=== PATIENT | male | born 1955 | race Caucasian/White ===

== ENCOUNTER → 2017-09-11 09:03 | Outpatient (REF) | payer MEDICARE, SELFPAY ==
[2017-09-11 13:33] LABS: Basophils # 0.1 K/mm3 (0-0.2); Basophils % 0.8 % (0.1-2.0); Eosinophils # 0.2 K/mm3 (0.0-0.4); Eosinophils % 3.2 % (0.1-12.0); Hematocrit 44.4 % (42.0-52.0); Hemoglobin 13.5 g/dL (14.1-18.0); Lymphocytes # 2.1 K/mm3 (0.7-4.5); Lymphocytes % 30.3 K/mm3 (10-50); Mean Corpuscular HGB Conc 30.5 g/dL (31.8-35.4); Mean Corpuscular Hemoglobin 28.4 pg (27.0-31.2); Mean Corpuscular Volume 93.2 fl (80-94); Mean Platelet Volume 7.7 fl (7.4-10.4); Monocytes # 0.4 K/mm3 (0.1-1.0); Monocytes % 6.1 % (1.7-9.3); Neutrophils # 4.1 K/mm3 (1.8-7.8); Neutrophils % 59.6 % (37.0-80.0); Platelet Count 242 K/mm3 (142-424); Red Blood Count 4.76 M/mm3 (4.60-6.20); Red Cell Distribution Width 13.7 % (11.5-17.5); White Blood Count 6.8 K/mm3 (4.8-10.8)
[2017-09-11 14:13] LABS: Alanine Aminotransferase 29 U/L (12-78); Albumin Level 3.7 gm/dL (3.4-5.0); Albumin/Globulin Ratio 1.1 (1.1-1.8); Alkaline Phosphatase 98 U/L (46-116); Anion Gap 11.1 mEq/L (5-15); Aspartate Amino Transferase 22 U/L (15-37); Bilirubin,Total 0.6 mg/dL (0.2-1.0); Blood Urea Nitrogen 10 mg/dL (7-18); Calcium 9.1 mg/dL (8.5-10.1); Carbon Dioxide 29 mmol/L (21.0-32.0); Chloride 107 mmol/L (98-107); Creatinine,Serum 0.89 mg/dL (0.70-1.30); Estimated Glomerular Filt Rate 87 ml/min (>60); Free T4 (Free Thyroxine) 1.09 ng/dl (0.76-1.46); GFR (African American) 105 ML/MIN (>60); Globulin 3.4 gm/dl (1.3-3.2); Glucose 95 mg/dL (74-106); Potassium 4.1 mmoL/L (3.5-5.1); Sodium 143 mmol/L (136-145); Total Protein,Serum 7.1 gm/dL (6.4-8.2)
[2017-09-13 06:27] LABS: PSA, Free 0.59 ng/mL; Prostate Specific Ag 8.5 ng/mL (0.0-4.0)
== END ==
LOC: LAB 09:03
PROVIDERS: Visit Provider Nurse Practitioner Family
DX: H54.40 Blindness, one eye, unspecified eye (principal); R53.83 Other fatigue; R97.20 Elevated prostate specific antigen [PSA]
CPT/HCPCS: 80053; 82652; 84153; 84154; 84439; 84443; 85025

== ENCOUNTER → 2019-09-12 14:09 | Outpatient (CLI) | payer MEDICARE, BC, SELFPAY ==
[2019-09-12 15:31] LABS: Basophils # 0.1 K/mm3 (0-0.2); Eosinophils # 0.2 K/mm3 (0.0-0.4); Hematocrit 45.5 % (42.0-52.0); Hemoglobin 14.7 g/dL (14.1-18.0); Lymphocytes % 28.5 % (10-50); Mean Corpuscular HGB Conc 32.3 g/dL (31.8-35.4); Mean Corpuscular Hemoglobin 29.7 pg (27.0-31.2); Mean Corpuscular Volume 91.8 fl (80-94); Mean Platelet Volume 8.6 fl (7.4-10.4); Monocytes # 0.4 K/mm3 (0.1-1.0); Monocytes % 5.7 % (1.7-9.3); Neutrophils # 4.3 K/mm3 (1.8-7.8); Neutrophils % 61.9 % (37.0-80.0); Platelet Count 240 K/mm3 (142-424); Red Blood Count 4.96 M/mm3 (4.60-6.20); Red Cell Distribution Width 13.5 % (11.5-17.5)
[2019-09-12 15:39] LABS: Chloride 106 mmol/L (98-107); Potassium 3.9 mmoL/L (3.5-5.1); Sodium 141 mmol/L (136-145)
[2019-09-12 15:42] LABS: Alanine Aminotransferase 23 U/L (12-78); Albumin Level 4.4 g/dl (3.5-5.0); Albumin/Globulin Ratio 1.5 (1.1-1.8); Alkaline Phosphatase 99 U/L (38-126); Anion Gap 11.9 mEq/L (5-15); Aspartate Amino Transferase 37 U/L (17-59); Blood Urea Nitrogen 11 mg/dl (9-20); Carbon Dioxide 27 mmol/L (22.0-30.0); Cholesterol 203 mg/dl (140-200); Estimated Glomerular Filt Rate 114 ml/min (>60); GFR (African American) 137 ML/MIN (>60); Total Protein,Serum 7.4 g/dl (6.3-8.2); Triglycerides 90 mg/dl (30-150); VLDL Cholesterol 18 mg/dL (0-40)
[2019-09-12 15:43] LABS: Calcium 9.3 mg/dl (8.4-10.2); Chol/HDL Ratio 2.5 (1-3.5); Glucose 108 mg/dl (74-100); HDL Cholesterol 81 mg/dl (40-60)
[2019-09-12 15:54] LABS: Direct LDL Cholesterol 104.65 mg/dL (100-129)
[2019-09-12 15:59] LABS: Free T4 (Free Thyroxine) 1.38 ng/dl (0.78-2.19)
[2019-09-12 16:14] LABS: Thyroid Stimulating Hormone 1.37 uIU/mL (0.465-4.68)
[2019-09-14 07:54] LABS: PSA, Free 0.77 ng/mL; Prostate Specific Ag 12.6 ng/mL (0.0-4.0)
[2019-09-15 08:25] LABS: Vitamin D 25 Hydroxy 25.2 ng/mL (30.0-100.0)
== END ==
PROVIDERS: Visit Provider Emergency Medicine
DX: R53.83 Other fatigue (principal); I10 Essential (primary) hypertension; E78.5 Hyperlipidemia, unspecified; M25.511 Pain in right shoulder; R97.20 Elevated prostate specific antigen [PSA]; E55.9 Vitamin D deficiency, unspecified
CPT/HCPCS: 80053; 80061; 82652; 84153; 84154; 84439; 84443; 85025

== ENCOUNTER → 2019-10-07 08:53 | Outpatient (CLI) | payer MEDICARE, OTHER, SELFPAY ==
--- NOTE | 2019-10-07 09:16 | XR_ITS ---
PROCEDURE: XR FOOT WT BEARING RT 3V CLINICAL INDICATION: pain COMPARISON: XR FOOT WT BEARING LT 3V from 10/07/2019 FINDINGS: No fracture or dislocation. No lytic or blastic change. There is normal mineralization. There are mild hypertrophic changes at the distal aspect of the 1st metatarsal. There is pes planus with degenerative changes of the posterior subtalar joint Other findings:None. IMPRESSION: Degenerative changes with pes planus Dictated by: Oneil Landin MD 10/07/2019 16:35 Electronically signed by Oneil Landin MD in [place] 10/07/2019 16:35
--- NOTE | 2019-10-07 09:16 | XR_ITS ---
PROCEDURE: XR CERVICAL SPINE 5V CLINICAL INDICATION: neck pain COMPARISON: No exams were available for comparison FINDINGS: No fracture or dislocation. No lytic or blastic change. There is normal mineralization. Straightening of the cervical lordosis. 3 mm anterolisthesis of C2 on C3 and C3 on C4. Severe degenerative disc disease C4-C5 C5-C6 C6-C7. Prominent facet arthritic changes are present from C3-C7 with foraminal narrowing on the left at C3-C4 C4-C5 C5-C6 and C6-C7 and on the right at C4-C5 C5-C6. Carotid artery calcifications are present. There is minimal mid cervical curvature convex right. There is an old fracture versus nuchal ligament calcification at C7. No lytic or blastic change Other findings:None. IMPRESSION: Multilevel degenerative changes with cervical spondylosis as detailed above Dictated by: Oneil Landin MD 10/07/2019 16:03 Electronically signed by Oneil Landin MD in [place] 10/07/2019 16:03
--- NOTE | 2019-10-07 09:16 | XR_ITS ---
PROCEDURE: XR SHOULDER RT MIN 2V CLINICAL INDICATION: right shoulder pain COMPARISON: No exams were available for comparison FINDINGS: No fracture or dislocation. No lytic or blastic change. There is normal mineralization. There are mild osteoarthritic changes the glenohumeral joint and acromioclavicular joint. No fracture or dislocation. Other findings:None. IMPRESSION: Mild osteoarthritis Dictated by: Oneil Landin MD 10/07/2019 16:01 Electronically signed by Oneil Lnadin MD in [place] 10/07/2019 16:01
--- NOTE | 2019-10-07 09:16 | XR_ITS ---
PROCEDURE: XR FOOT WT BEARING LT 3V CLINICAL INDICATION: pain COMPARISON: No exams were available for comparison FINDINGS: No fracture or dislocation. No lytic or blastic change. There is normal mineralization. The joint spaces are well-preserved. No significant degenerative/arthritic changes. No erosive changes evident. Other findings:None. IMPRESSION: No acute findings. Dictated by: Oneil Landin MD 10/07/2019 16:34 Electronically signed by Oneil Landin MD in [place] 10/07/2019 16:34
== END ==
PROVIDERS: PCP Emergency Medicine; Visit Provider Podiatrist
DX: M54.2 Cervicalgia (principal); M25.511 Pain in right shoulder; M79.672 Pain in left foot; M79.671 Pain in right foot
CPT/HCPCS: 72050; 73030; 73630

== ENCOUNTER → 2019-10-10 08:17 | Outpatient (CLI) | payer MEDICARE, SELFPAY ==
[2019-10-10 10:29] LABS: Coronavirus 19 IgG Antibody Negative (Negative); Coronavirus 19 IgM Antibody Negative (Negative)
== END ==
PROVIDERS: Visit Provider Urology
DX: Z01.818 Encounter for other preprocedural examination (principal)
CPT/HCPCS: 36415; 86328

== ENCOUNTER 2019-10-13 09:17 | Day surgery (SDC) | payer MEDICARE, SELFPAY ==
--- NOTE | 2019-10-09 09:21 | SUR.PREOP ---
10/09/2019 @ 7620--PHONE CALL MADE TO PATIENT. PATIENT UNDERSTANDS THAT LAB WORK AND COVID TESTING NEEDS TO BE COMPLETED @ 0800 ON 10/10/2019. PATIENT UNDERSTANDS IF LAB WORK AND COVID-19 TESTS ARE NOT COMPLETED BY 12PM ON THAT DATE, THE SURGERY SCHEDULED WILL BE CANCELLED AND RESCHEDULED FOR ANOTHER TIME.
[2019-10-10 10:27] VITALS: BMI 22.9
[2019-10-13 09:33] VITALS: BP 152/98; PULSE 103; RESP 18; TEMP 36.9; O2SAT 97
[2019-10-13 10:23] VITALS: BP 123/73; PULSE 98; RESP 18; TEMP 36.5; O2SAT 96
--- NOTE | 2019-10-13 10:26 | P.PN_ITS ---
[facility] Anesthesia Checklist - Patient Identification Patient Identification: Arm Band - Structural Data Admitted From: Home Planned Operative Procedure/s: prostate bx Consent for Planned Operative Procedure(s) Verified: Yes Verified Documents: Surgical Consent, History and Physical - NPO Status Verified Time NPO: 00:00 - Additional verifications Anesthesia Reactions: No Hx Blood Transfusions: No Blood Transfusion Reaction: No - Airway Assessment C-Spine Mobility Assessed: Yes (mp2) TMJ Mobility Assessed: Yes Dentition: Good Dentition - Neurological Assessment Level of Consciousness: Awake, Alert - Anesthesia Plan Anesthesia Risk discussed: Yes Anesthesia Plan: Verified ASA Class: II Anesthesia Type: MAC [facility] History I have reviewed the patient's past medical history: Yes Medical History: Denies:: Cancer, Diabetes Mellitus Type 1, Diabetes Mellitus Type 2, Internal Pacemaker, MRSA, Seizures *Have you ever received a pneumonia vaccine?: No *Have you received a flu vaccine this season?: No Other Medical History: Reports: Other. Denies: Blood Transfusion Reaction Anesthesia experience/problems:: nac Laterality Cases: Right: Arthroscopy Knee, Other Other Surgeries: Yes: Colonoscopy, Other. No: Pacemaker Amputation: No Fractures: Yes (Right foot) - *Social History Last grade of school completed: Advanced degree Smoking Status: Former smoker Tobacco Type: cigarettes # Packs/Day (cigarettes): 1 Alcohol Intake: never Substance Use Type: denies use *Occupational Status:: employed Housing: house Household Members: spouse *Travel in the last 8 weeks: None Family Hx:: No significant family history
[2019-10-13 10:33] VITALS: BP 99/68; PULSE 105; RESP 18; O2SAT 97
[2019-10-13 10:43] VITALS: BP 107/76; PULSE 93; RESP 18; O2SAT 96
[2019-10-13 10:52] VITALS: BP 121/81; PULSE 90; RESP 18; O2SAT 95
--- NOTE | 2019-10-13 11:07 | HMH.OPNOTE ---
Date of procedure: 10/13/19 Pre-op Diagnosis:: Elevated PSA Post-op Diagnosis:: Same Procedure performed:: Transrectal ultrasound with prostate biopsies x12 Surgeon:: Bert Jay MD FIELD TRAINING AGENT:: Kartik Palacios Anesthesia: MAC Estimated blood loss (mL): 0 Clinical Note:: 63-year-old white male with rising PSA and some firmness to his prostate exam. Operative findings:: Prostate measured at 23.1 cm?. There was a hypoechoic nodule at the right prostate base and some scattered calcifications. Operative note:: Patient taken to the operating room after informed consent was obtained. Was placed on the operating table in the left lateral decubitus position. Monitored anesthesia care was then administered. His legs were flexed he was padded appropriately. He had been on p.o. antibiotics and IV Ancef was given in addition. He had formed his enema earlier that morning. Transrectal ultrasound was placed into the rectum after analgesia. Prostate was visualized easily and was measured at 23.1 cm?. There was a hypoechoic spherical nodule at the left prostate base. Few scattered calcifications were noted. Local anesthetic was placed in these neurovascular bundle and 12 biopsies then taken in a systematic fashion. The probe removed and the patient tolerated the procedure well. There are no complications. Transported to recovery in stable condition. Condition: stable Disposition: same day Specimens:: Prostate biopsies x12 Complications:: None
== END 2019-10-13 10:56 | disposition home or self-care (01) ==
LOC: OR 09:20
PROVIDERS: PCP Emergency Medicine; Visit Provider Urology
DX: C61 Malignant neoplasm of prostate (principal); Z87.39 Personal history of other diseases of the musculoskeletal system and connective tissue; Z98.52 Vasectomy status; Z83.438 Family history of other disorder of lipoprotein metabolism and other lipidemia; Z83.49 Family history of other endocrine, nutritional and metabolic diseases; Z82.49 Family history of ischemic heart disease and other diseases of the circulatory system; Z87.891 Personal history of nicotine dependence
CPT/HCPCS: 55700; 76942; 88305; 96374

== ENCOUNTER → 2019-11-06 08:45 | Outpatient (CLI) | payer MEDICARE, SELFPAY ==
[2019-11-06 09:08] LABS: Blood Urea Nitrogen 11 mg/dl (9-20); Estimated Glomerular Filt Rate 114 ml/min (>60); GFR (African American) 137 ML/MIN (>60)
--- NOTE | 2019-11-06 09:12 | NM_ITS ---
PROCEDURE: NM BONE SCAN WHOLE BODY CLINICAL INDICATION: prostate cancer, diagnosed 2 weeks ago. COMPARISON: No exams were available for comparison TECHNIQUE: Dose Radiopharmaceutical: 26.3 millicurie technetium 99 M MDP intravenously. FINDINGS: Normal physiologic distribution of radiotracer is seen. No evidence of osteoblastic metastatic disease is demonstrated. Degenerative arthritic uptake is seen in the major joints of the appendicular skeleton. IMPRESSION: No evidence of osseous metastatic disease. Dictated by: Rachael Gallegos 11/06/2019 16:25 Electronically signed by Rachael Gallegos in [place] 11/06/2019 16:25
--- NOTE | 2019-11-06 12:53 | HMH.ITSHM ---
Current Home Medications as stated by this patient Fazal Craig or brand representative. [] fluticasone meloxican gabapentin
== END ==
PROVIDERS: Visit Provider Urology
DX: C61 Malignant neoplasm of prostate (principal)
CPT/HCPCS: 36415; 78306; 82565; 84520; A9503

== ENCOUNTER → 2019-11-07 09:00 | Outpatient (CLI) | payer MEDICARE, SELFPAY ==
--- NOTE | 2019-11-07 09:01 | CT_ITS ---
PROCEDURE: CT ABDOMEN PELVIS WO/W CON CLINICAL INDICATION: prostate cancer COMPARISON: No exams were available for comparison TECHNIQUE: IV Contrast: 75ML OPTIRAY 350 Oral Contrast 450ml Redicat Axial images obtained with sagittal and coronal reformats. All CT scans at the facility use one or more dose reduction, viz: automated exposure control, ma/kV adjustment per patient size (including targeted exams where dose is matched to indication, i.e. head), or iterative reconstruction technique. FINDINGS: LOWER THORAX: No acute finding. Mild dependent atelectasis is seen in the visualized extends of the lung bases. ABDOMEN & PELVIS: Hepatobiliary: The liver has a normal size with a smooth surface. The hepatic and portal veins appear patent. No discrete hepatic lesion is identified. The gallbladder and biliary ductal system is unremarkable. Pancreas: There is no demonstrated pancreatic mass or cyst. Spleen: Multiple small calcified granulomata of the spleen. The spleen is not enlarged. Adrenals: The adrenal glands are normal. Kidneys, ureters and bladder: Both kidneys have a normal size and morphology. There is a 2.6 centimeter partially exophytic simple cyst seen laterally of the mid right kidney. There is no hydronephrosis. Both ureters have normal course and caliber. There is up to 5.5 millimeters mild diffuse wall thickening of the urinary bladder. Gastrointestinal: The stomach and small bowel are normal with no obstruction or inflammation. Moderate amount of retained stool is seen in the ascending colon. The large bowel is within normal limits. Reproductive organs: Probably there is borderline prostatomegaly. Normal bilateral seminal vesicles. Lymphatic system: No significant adenopathy demonstrated within the abdomen/pelvis. Small reactive lymph nodes are seen in the root of the small bowel mesentery. Vasculature: Moderate atherosclerotic calcification of the infrarenal abdominal aorta and significant calcification of the iliac arteries. Normal caliber abdominal aorta. Peritoneum: No free fluid, free air or inflammation seen. Abdominal wall and musculoskeletal: Soft tissues are unremarkable. Degenerative endplate spondylitic changes of the thoracolumbar spine are seen with anterior is small osteophytes. At L5-S1 degenerative disc/endplate spondylitic changes are seen. No lytic/blastic destructive bony abnormality is identified. IMPRESSION: 1.No mass, lymphadenopathy or acute abnormality demonstrated in the abdomen/pelvis. 2. A 2.6 centimeter right renal simple cyst. 3. Possible borderline prostatomegaly. Mild diffuse urinary bladder wall thickening. 4. No osseous lytic/blastic abnormality is seen. Possible osteopenia. Dictated by: Rachael Gallegos 11/07/2019 11:14 Electronically signed by Rachael Gallegos in [place] 11/07/2019 11:14
--- NOTE | 2019-11-07 09:45 | HMH.ITSHM ---
Current Home Medications as stated by this patient Fazal Craig or fraud representative. []meloxicam GABAPENTIN NASAL SPRAY FEXOFENDADINE VITAMIN D2
== END ==
PROVIDERS: PCP Emergency Medicine; Visit Provider Urology
DX: C61 Malignant neoplasm of prostate (principal)
CPT/HCPCS: 74178; Q9967

== ENCOUNTER 2020-01-11 13:53 | Emergency (ER) | payer MEDICARE, SELFPAY ==
[2020-01-11 14:30] VITALS: BP 160/93; PULSE 87; RESP 19; TEMP 36.6; O2SAT 99; BMI 22.9
--- NOTE | 2020-01-11 14:55 | HMH.EDUTC ---
[facility] [place] Clinical Impression: Hematoma Disposition: Home, Self-Care Condition on Discharge: Good Instructions: DI for Hematoma (Bruise), How To Perform RICE (Rest, Ice, Compress, Elevate) Additional Instructions: *RICE, Rest the extremity, Ice 15-20 minutes 3-4 times daily, Compress- wear the kiran wrap as discussed as much as possible to help reduce swelling and pain, Elevate the extremity when at rest *Kiran wrap is for support and help control swelling, use it except in the shower. Be sure that is not to tight but not to loose either *Elevate when resting *Call Dr Valenzuela office tomorrow for appointment Return if needed Straight to ER If any life threatening symptoms such as chest pain or trouble breathing etc Referrals: Aftab Farfan MD [Primary Care Provider] - As needed Chance Maria MD [Staff Physician] - As needed (call office tomorrow for appointment) Time of Disposition: 16:23 Medical Decision Making - Issac Inquiry Pt receiving controlled substance: No Issac was queried for this patient: No Vital Signs: 01/11/20 14:30 01/11/20 16:26 Temperature 97.8 F 978 F H Temperature Source Oral Oral Pulse Rate 87 Pulse Rate [Radial] 87 Respiratory Rate 19 19 Blood Pressure 160/93 H Blood Pressure [Right Arm] 160/93 H Blood Pressure Mean [Right Arm] 115 Blood Pressure Source Automatic Cuff Blood Pressure Source [Right Arm] Automatic Cuff Blood Pressure Position Sitting Blood Pressure Position [Right Arm] Sitting 02 Sat by Pulse Oximetry 99 Oxygen Delivery Method Room Air Room Air Medical Decision Narrative: Discussed with patient and recommended to call Orthopedic office in the morning for appointment for further evaluation and treatment concern for muscle tear,No further bruising noted after arrival no abdnormal swelling noted. Patient able to move arm and raise arm above head [facility] [place] HPI - General Stated complaint: bruise on right arm, no accident Time Seen by Provider: 01/11/20 14:55 Mode of Arrival: Ambulatory Source of Information: Patient Limitations: No Limitations Description of Symptoms (Recalled from Triage Doc. by RN): purple area to the right arm. HEENT Symptoms (Recalled from RN notes): No Resp Symptoms (Recalled from RN notes): No Skin Symptoms (Recalled from RN notes): Yes MS Symptoms (Recalled from RN notes): No Functional Status (Recalled from RN notes): wnl - History of Present Illness Provider Complaint: Patient states that he was outside and shoveled up some dirt and noticed he had large purple area on his right upper arm States that he doesnt recall doing anything to hurt it and not sore to the touch States that it hasnt got any worse but he was worried so he come in to get it checked States that he had been seeing Dr Maria for muscle problem in that shoulder and denies taking any blood thinners - Related Data Home Medications Medication Instructions Recorded Confirmed fluticasone propionate 50 1 spray INTRANASAL DAILY 06/27/18 11/21/19 mcg/actuation nasal spray,suspension fexofenadine 60 mg tablet 60 mg PO BID 09/12/19 11/21/19 Ergocalciferol (Vitamin D2) 1,250 mcg PO QWEEK 10/13/19 11/21/19 [Drisdol] Previous Rx's Medication Instructions Recorded meloxicam 7.5 mg tablet 7.5 mg PO DAILY 30 Days #30 tab 11/04/19 acetaminophen 300 mg-codeine 30 mg 1 tab PO TID PRN #90 tab 12/17/19 tablet Allergies Allergy/AdvReac Type Severity Reaction Status Date / Time pollen extracts Allergy Verified 11/21/19 11:34 - Worker's Comp Is this a Worker's Comp case?: No [facility] History - Hepatitis A Screen Drug use history?: No High risk sexual behaviors?: No History of sexually transmitted infection?: No Currently employed?: No Childcare worker?: No Do you have indoor plumbing?: Yes Do you have electricity?: Yes Attestation statement:: This patient has been screened for Hepatitis A risk factors. I have reviewed the patient's past m
[2020-01-11 16:26] VITALS: BP 160/93; PULSE 87; RESP 19; TEMP 525.5; TEMP 978; O2SAT 99
== END 2020-01-11 16:27 | disposition home or self-care (01) ==
PROVIDERS: Emergency Provider Nurse Practitioner; PCP Emergency Medicine
DX: S40.021A Contusion of right upper arm, initial encounter (principal); X50.3XXA Overexertion from repetitive movements, initial encounter; Y92.019 Unspecified place in single-family (private) house as the place of occurrence of the external cause; I10 Essential (primary) hypertension; Z87.891 Personal history of nicotine dependence
CPT/HCPCS: G0463; 99201

== ENCOUNTER → 2020-01-28 16:03 | Outpatient (CLI) | payer MEDICARE, SELFPAY ==
--- NOTE | 2020-01-28 16:03 | MR_ITS ---
PROCEDURE: MR SHOULDER RT WO CON CLINICAL INDICATION: right shoulder evaluation for rotator cuff tear CHRONIC RT SHOULDER PAIN THIS TO EVALUATE FOR ROTATOR CUFF TEAR. COMPARISON: 10/07/2019 radiograph TECHNIQUE: Routine multiplanar multi echo sequences are performed without gadolinium enhancement. FINDINGS: There is complete tear of the supraspinatus tendon with retraction of the musculotendinous fibers and some atrophy of the musculotendinous fibers. There is subacromial stenosis with subacromial fluid with hypertrophic change of the acromioclavicular joint. There is a slightly high-riding humeral head with mild osteoarthritic changes of the glenohumeral joint. The subscapularis, teres minor, and infraspinatus tendons are intact. No obvious labral tear. Bicipital tendon is in place. There is a moderate sized shoulder joint effusion with fluid posterior to the shoulder joint and a small amount of subcoracoid fluid. 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 Dictated by: Oneil Landin MD 01/29/2020 10:40 Oneil Landin MD in [place] 01/29/2020 10:40
== END ==
PROVIDERS: PCP Emergency Medicine; Visit Provider Orthopaedic Surgery
DX: G89.29 Other chronic pain (principal); M25.511 Pain in right shoulder
CPT/HCPCS: 73221

== ENCOUNTER 2020-03-30 10:00 | Outpatient (RCR) | payer MEDICARE, SELFPAY ==
--- NOTE | 2020-02-18 13:20 | HMH.PTOPEV ---
PT Outpatient Evaluation Rehab PT Outpatient Evaluation Start: 02/18/20 13:11 Freq: Status: Active Protocol: Document 02/18/20 13:11 JHOAN (Rec: 02/18/20 13:20 JHOAN [id number]) Electronically Signed By Daniel Alexander, PT 02/18/20 13:11 Outpatient Therapy Subjective History Subjective History Pt reports insidious onset RSH pain beginning in August 2019, with difficulty lifting/ gripping w/RUE to follow. Pt reports recent MRI of R SH has revealed supraspinatus tear, and AC jt OA. Pt reports recent 'injection' into RSH has 'helped', but still has significant pain, weakness, and limited ROM. Chief Complaint Pain,Stiff,Weakness Symptom Type Ache,Sharp,Dull Symptoms Relieved By Rest/Positioning,Ice Symptoms Aggravated By Physical Activity,Lifting Prior Functional Limitations Reaching,Lifting,Housework Current Functional Limitations Reaching,Lifting,Housework Symptom Description Constant but Variable Level of pain today (0-10) 7 Pain scale - at its best (0-10) 5 Pain scale - at its worst (0-10) 8 Shoulder/Elbow Eval Shoulder Objective Measurements Palpation Tenderness tenderness shoulder exam standard right tenderness over the bicipital tendon right shoulder exam standard Shoulder Palpation Findings Tenderness,Muscle Guarding Shoulder Palpation Overall Comment 2-3/4 LHB, SS INSERTION, POST RTC MM BELLY Posture Scapula Posture Sitting Position (L) Protracted,(R) Protracted Scapular Posture Standing Position (L) Protracted,(R) Protracted Flexibilty Deficits Pectoralis Minor Muscle Length (R) Mild Tightness,(L) Mild Tightness Pectoralis Major Muscle Length (R) Mild Tightness,(L) Mild Tightness Shoulder ROM Right Shoulder Abduction Active Range of 0-115 Motion (degrees) Shoulder Abduction Passive Range of 0-135 Motion (degrees) Shoulder Flexion Active Range of Motion 0-125 (degrees) Query Text: Shoulder Flexion Passive Range of Motion 0-140 (degrees) Shoulder External Rotation Passive Range 0-90 of Motion (degrees) Shoulder Internal Rotation Passive Range 0-25 of Motion (degrees) Shoulder MMT Middle Trapezius Strength Grade 3+ Fair+ Rhomboids Strength Grade 3+ Fair+ Serratus Anterior Strength Grade 4- Good- Shoulder Abduction Strength Grade 4- Good- Shoulder Extension Strength Grade 4- Good-
--- NOTE | 2020-03-19 10:39 | HMH.RHREAS ---
Rehab Reassessment Rehab OP Re-assessment Start: 03/19/20 10:24 Freq: Status: Active Protocol: Document 03/19/20 10:24 JHOAN (Rec: 03/19/20 10:39 JHOAN [id number]) Electronically Signed By Daniel Alexander, PT 03/19/20 10:24 Rehab Re-assessment Subjective Subjective PT REPORTS 4/10 R SH AT REST AND 7/10 R SH PAIN WITH ACTIVITY ON VAS, AND FEELS 3-5 % BETTER OVERALL SINCE I EVAL Objective Objective Notes AROM: R SH FLX 0-150, ABD 0- 145 MMT: R SH FLX 4/5, ABD 4/5, IR 5/5, ER 4+/5, BICEP 5/5, TRICEP 5/5 TTP: R SH ANT RTC 05/13, POST RTC 04/12 Assessment Progress Assessment Progressing as Expected Assessment Notes PT W/IMPROVED STRENGTH, ROM, AND TTP Patient goals met STG'S 07/14 LTG'S 04/17 Goals Not Met STG'S 06/13, LTG'S 11/15 Plan Plan PT TO CONT. W/SKILLED P.T. TO MAKE FURTHER IMPROVEMENTS IN R SH AROM, STRENGTH, TTP TO ALLOW FOR OPTIMAL FUNCTION Frequency of Therapy 1-2X/WK Duration of therapy 3-4WKS Time and Billing Re-Eval Time 15 Re-Eval Billing Units 0 PHYSICIAN CERTIFICATION: I certify the specified therapy services for Fazal Craig are required, authorized, and reviewed every 30 days.
== END 2020-03-30 10:05 | disposition home or self-care (01) ==
LOC: PT 10:00
PROVIDERS: PCP Emergency Medicine; Visit Provider Orthopaedic Surgery
DX: M75.121 Complete rotator cuff tear or rupture of right shoulder, not specified as traumatic (principal)
CPT/HCPCS: 97014; 97033; 97110; 97163; 97164; G0283

== ENCOUNTER 2020-04-30 09:00 | Outpatient (RCR) | payer MEDICARE, SELFPAY ==
--- NOTE | 2020-04-07 16:18 | HMH.PTOPEV ---
PT Outpatient Evaluation Rehab PT Outpatient Evaluation Start: 04/07/20 15:38 Freq: Status: Active Protocol: Document 04/07/20 16:07 REGIS (Rec: 04/07/20 16:18 PHORNE [id number]) Electronically Signed By Alex Chang, PT 04/07/20 16:07 Outpatient Therapy Subjective History Subjective History Pt is 64 yowm who presents with c/o pain in neck, worse on L side for many years. He reports he has had therapy in the past and he does get some relief from exercises he can remember. He reports pain is intermittent, but can be severe. He also reports intermittent STARKS. 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 He also has hx of currently torn R supraspinatus tendon which he states, they want to do a replacement on it. Chief Complaint Pain,Stiff Symptom Type Ache Symptoms Relieved By Rest/Positioning,Prescription Meds Symptoms Aggravated By Physical Activity Prior Functional Limitations None Current Functional Limitations Reaching,Lifting Symptom Description Intermittent Level of pain today (0-10) 5 Pain scale - at its worst (0-10) 7 Cervical Eval Palpation Cervical Muscles R Cervical Paraspinal,L Cervical Paraspinal,L Upper Trapezius Cervical/Thoracic Palpation Findings Tenderness Flexibility Deficits Upper Trapezius Muscle Length (R) Moderate Tightness,(L) Moderate Tightness Levaetor Scapulae Muscle Length (R) Moderate Tightness,(L) Moderate Tightness Scalene Group Muscle Length (L) Moderate Tightness Passive Joint Mobility Cervical PIVM Dec: R C2/3 L C2/3 R C3/4 L C3/4 R C4/5 L C4/5 R C5/6 L C5/6 R C6/7 L C6/7 R C7/T1 L C7/T1
== END 2020-04-30 09:05 | disposition home or self-care (01) ==
LOC: PT 09:00
PROVIDERS: Visit Provider Emergency Medicine
DX: M54.2 Cervicalgia (principal)
CPT/HCPCS: 97012; 97014; 97110; 97163; G0283

== ENCOUNTER → 2020-05-17 14:16 | Outpatient (CLI) | payer MEDICARE, SELFPAY ==
[2020-05-17 15:58] LABS: Amphetamine/Metha Screen,Urine Negative ng/ml (<1000)
[2020-05-17 15:59] LABS: Barbiturates Screen,Urine Negative ng/ml (<200); Benzodiazepines Screen,Urine Negative ng/ml (<200)
[2020-05-17 16:00] LABS: Cannabinoid Screen,Urine Negative ng/ml (<50)
[2020-05-17 16:01] LABS: Cocaine Screen,Urine Negative ng/ml (<300)
[2020-05-17 16:02] LABS: Methadone Screen,Urine Negative ng/ml (<300); Opiate Screen,Urine Negative ng/ml (<300)
[2020-05-17 16:04] LABS: Phencyclidine Screen,Urine Negative ng/ml (<25)
== END ==
PROVIDERS: Visit Provider Emergency Medicine
DX: Z79.899 Other long term (current) drug therapy (principal)
CPT/HCPCS: 80305

== ENCOUNTER → 2020-07-14 14:19 | Outpatient (CLI) | payer MEDICARE, SELFPAY ==
[2020-07-14 15:21] LABS: Amphetamine/Metha Screen,Urine Negative ng/ml (<1000)
[2020-07-14 15:22] LABS: Barbiturates Screen,Urine Negative ng/ml (<200)
[2020-07-14 15:23] LABS: Benzodiazepines Screen,Urine Negative ng/ml (<200)
[2020-07-14 15:24] LABS: Cannabinoid Screen,Urine Negative ng/ml (<50)
[2020-07-14 15:25] LABS: Cocaine Screen,Urine Negative ng/ml (<300); Methadone Screen,Urine Negative ng/ml (<300)
[2020-07-14 15:26] LABS: Opiate Screen,Urine Positive ng/ml (<300)
[2020-07-14 15:27] LABS: Phencyclidine Screen,Urine Negative ng/ml (<25)
== END ==
PROVIDERS: Visit Provider Emergency Medicine
DX: Z79.899 Other long term (current) drug therapy (principal)
CPT/HCPCS: 80305

== ENCOUNTER → 2020-10-27 13:05 | Outpatient (CLI) | payer MEDICARE, SELFPAY ==
[2020-10-28 00:22] LABS: Amphetamine/Metha Screen,Urine Negative ng/ml (<1000); Barbiturates Screen,Urine Negative ng/ml (<200); Benzodiazepines Screen,Urine Negative ng/ml (<200); Cannabinoid Screen,Urine Negative ng/ml (<50); Cocaine Screen,Urine Negative ng/ml (<300); Methadone Screen,Urine Negative ng/ml (<300); Opiate Screen,Urine Positive ng/ml (<300); Phencyclidine Screen,Urine Negative ng/ml (<25)
== END ==
PROVIDERS: Visit Provider Emergency Medicine
DX: Z79.899 Other long term (current) drug therapy (principal)
CPT/HCPCS: 80305

== ENCOUNTER → 2020-12-22 14:22 | Outpatient (CLI) | payer MEDICARE, SELFPAY ==
[2020-12-22 15:44] LABS: Phencyclidine Screen,Urine Negative ng/ml (<25)
[2020-12-22 15:54] LABS: Amphetamine/Metha Screen,Urine Negative ng/ml (<1000)
[2020-12-22 15:55] LABS: Cannabinoid Screen,Urine Negative ng/ml (<50)
[2020-12-22 15:56] LABS: Barbiturates Screen,Urine Negative ng/ml (<200); Benzodiazepines Screen,Urine Negative ng/ml (<200)
[2020-12-22 15:57] LABS: Cocaine Screen,Urine Negative ng/ml (<300); Opiate Screen,Urine Negative ng/ml (<300)
[2020-12-22 15:58] LABS: Methadone Screen,Urine Negative ng/ml (<300)
== END ==
PROVIDERS: Visit Provider Emergency Medicine
DX: Z79.899 Other long term (current) drug therapy (principal)
CPT/HCPCS: 80305

== ENCOUNTER → 2021-01-01 08:15 | Outpatient (CLI) | payer MEDICARE, SELFPAY ==
[2021-01-01 09:04] LABS: Basophils # 0.1 K/mm3 (0-0.2); Basophils % 0.8 % (0.1-2.0); Eosinophils # 0.3 K/mm3 (0.0-0.4); Eosinophils % 3.8 % (0.1-12.0); Hematocrit 39.8 % (42.0-52.0); Hemoglobin 12.5 g/dL (14.1-18.0); Lymphocytes # 2.5 K/mm3 (0.7-4.5); Lymphocytes % 34.1 % (10-50); Mean Corpuscular HGB Conc 31.4 g/dL (31.8-35.4); Mean Corpuscular Hemoglobin 29.4 pg (27.0-31.2); Mean Corpuscular Volume 93.8 fl (80-94); Mean Platelet Volume 7.7 fl (7.4-10.4); Monocytes # 0.3 K/mm3 (0.1-1.0); Monocytes % 4.7 % (1.7-9.3); Neutrophils # 4.1 K/mm3 (1.8-7.8); Neutrophils % 56.6 % (37.0-80.0); Platelet Count 254 K/mm3 (142-424); Red Blood Count 4.25 M/mm3 (4.60-6.20); Red Cell Distribution Width 14.2 % (11.5-17.5); White Blood Count 7.3 K/mm3 (4.8-10.8)
[2021-01-01 09:23] LABS: Chloride 107 mmol/L (98-107); Potassium 3.9 mmoL/L (3.5-5.1); Sodium 143 mmol/L (136-145)
[2021-01-01 09:25] LABS: Alanine Aminotransferase 20 U/L (12-78); Blood Urea Nitrogen 14 mg/dl (9-20); Estimated Glomerular Filt Rate 97 ml/min (>60); GFR (African American) 117 ML/MIN (>60)
[2021-01-01 09:26] LABS: Albumin Level 3.8 g/dl (3.5-5.0); Albumin/Globulin Ratio 1.2 (1.1-1.8); Alkaline Phosphatase 84 U/L (38-126); Anion Gap 10.9 mEq/L (5-15); Aspartate Amino Transferase 30 U/L (17-59); Bilirubin,Total 0.5 mg/dl (0.2-1.3); Calcium 9.2 mg/dl (8.4-10.2); Carbon Dioxide 29 mmol/L (22.0-30.0); Chol/HDL Ratio 2.8 (1-3.5); Cholesterol 201 mg/dl (140-200); Globulin 3.3 g/dL (1.3-3.2); Glucose 93 mg/dl (74-100); HDL Cholesterol 72 mg/dl (40-60); Total Protein,Serum 7.1 g/dl (6.3-8.2); Triglycerides 85 mg/dl (30-150); VLDL Cholesterol 17 mg/dL (0-40)
[2021-01-01 09:37] LABS: Direct LDL Cholesterol 93.02 mg/dL (100-129)
[2021-01-01 09:41] LABS: 25-OH Vitamin D, Total 41.1 ng/mL (30-100); Free T4 (Free Thyroxine) 1.12 ng/dl (0.78-2.19)
[2021-01-01 09:56] LABS: Thyroid Stimulating Hormone 1.22 uIU/mL (0.465-4.68)
== END ==
PROVIDERS: Visit Provider Emergency Medicine
DX: M25.512 Pain in left shoulder (principal); R53.83 Other fatigue; E55.9 Vitamin D deficiency, unspecified; Z79.899 Other long term (current) drug therapy
CPT/HCPCS: 36415; 80053; 80061; 82306; 84439; 84443; 85025

== ENCOUNTER → 2021-01-31 19:42 | Outpatient (CLI) | payer MEDICARE, SELFPAY | PROVIDERS: Visit Provider Nurse Practitioner Family | DX: J02.9 Acute pharyngitis, unspecified (principal); Z20.822 Contact with and (suspected) exposure to COVID-19 | CPT/HCPCS: C9803; U0003; U0005 ==

== ENCOUNTER → 2021-02-16 17:48 | Outpatient (CLI) | payer MEDICARE, SELFPAY ==
[2021-02-16 19:38] LABS: Amphetamine/Metha Screen,Urine Negative ng/ml (<1000)
[2021-02-16 19:40] LABS: Barbiturates Screen,Urine Negative ng/ml (<200); Cannabinoid Screen,Urine Negative ng/ml (<50)
[2021-02-16 19:41] LABS: Benzodiazepines Screen,Urine Negative ng/ml (<200)
[2021-02-16 19:42] LABS: Cocaine Screen,Urine Negative ng/ml (<300); Opiate Screen,Urine Negative ng/ml (<300)
[2021-02-16 19:43] LABS: Methadone Screen,Urine Negative ng/ml (<300)
[2021-02-16 19:44] LABS: Phencyclidine Screen,Urine Negative ng/ml (<25)
== END ==
PROVIDERS: Visit Provider Emergency Medicine
DX: Z79.899 Other long term (current) drug therapy (principal)
CPT/HCPCS: 80305

== ENCOUNTER → 2021-06-14 16:00 | Outpatient (CLI) | payer MEDICARE, SELFPAY ==
[2021-06-14 14:45] LABS: Amphetamine/Metha Screen,Urine Negative ng/ml (<1000)
[2021-06-14 14:47] LABS: Barbiturates Screen,Urine Negative ng/ml (<200); Cannabinoid Screen,Urine Negative ng/ml (<50)
[2021-06-14 14:48] LABS: Benzodiazepines Screen,Urine Negative ng/ml (<200)
[2021-06-14 14:50] LABS: Cocaine Screen,Urine Negative ng/ml (<300)
[2021-06-14 14:51] LABS: Methadone Screen,Urine Negative ng/ml (<300)
[2021-06-14 14:52] LABS: Opiate Screen,Urine Positive ng/ml (<300); Phencyclidine Screen,Urine Negative ng/ml (<25)
== END ==
PROVIDERS: Visit Provider Emergency Medicine
DX: Z79.899 Other long term (current) drug therapy (principal)
CPT/HCPCS: 80305

== ENCOUNTER 2021-06-26 10:36 | Emergency (ER) | payer MEDICARE, SELFPAY ==
[2021-06-26 11:10] VITALS: BP 146/89; PULSE 123; RESP 20; TEMP 37.2; O2SAT 95; BMI 24.3
[2021-06-26 11:28] LABS: UTC Influenza A Antigen Negative (Negative); UTC Influenza B Antigen Negative (Negative)
--- NOTE | 2021-06-26 11:54 | HMH.EDUTC ---
[facility] [place] Clinical Impression: Upper respiratory infection Qualifiers: URI type: unspecified viral URI Qualified Code(s): J06.9 - Acute upper respiratory infection, unspecified Disposition: Home, Self-Care Condition on Discharge: Good Instructions: DI for Viral Upper Respiratory Infection -- Adult Additional Instructions: Viruses can take 7-14 days to run their course. Nasal saline and bulb syringe or nose [place] to remove nasal drainage to help with nasal congestion. Hard to eat, drink, sleep with nasal congestion so important to keep this cleaned out. Monitor temp. Tylenol or Motrin as needed for pain or fever Encourage fluids, water, Gatorade, Powerade, Pedialyte if /toddler/child Warm salt water gargles Warm fluids Sore throat lozenges Sleep elevated Humidifier/vaporizer Follow-up immediately for new or worsening symptoms or no noticeable improvement over the next 48-72 hours. Referrals: Aftab Farfan MD [Primary Care Provider] - Time of Disposition: 12:12 Medical Decision Making - Issac Inquiry Pt receiving controlled substance: No Vital Signs: 06/26/21 11:10 Temperature 98.9 F Temperature Source Oral Pulse Rate [Right Brachial] 123 H Respiratory Rate 20 Blood Pressure [Right Arm] 146/89 H Blood Pressure Mean [Right Arm] 108 Blood Pressure Source [Right Arm] Automatic Cuff Blood Pressure Position [Right Arm] Sitting 02 Sat by Pulse Oximetry 95 Oxygen Delivery Method Room Air - Lab Data Lab Results 06/26/21 11:14: Influenza Type A Ag Negative, Influenza Type B Ag Negative [facility] [place] - General Chief complaint: Urgent Treatment Center Stated complaint: fever, sore throat, body aches Time Seen by Provider: 06/26/21 11:54 Mode of Arrival: Ambulatory Source of Information: Patient Limitations: No Limitations Description of Symptoms (Recalled from Triage Doc. by RN): PATIENT C/O CONGESTION AND BODY ACHES X 2 DAYS HEENT Symptoms (Recalled from RN notes): Yes Resp Symptoms (Recalled from RN notes): No Skin Symptoms (Recalled from RN notes): No MS Symptoms (Recalled from RN notes): No Functional Status (Recalled from RN notes): WNL - History of Present Illness Provider Complaint: 65 yr old male presents for cough, sore throat and body aches for 2 days. having a test tomorrow and wants to make sure everything ok - Related Data Home Medications Medication Instructions Recorded Confirmed ferrous sulfate 325 mg (65 mg 325 mg PO DAILY 06/14/21 06/14/21 iron) tablet multivitamin 1 tab PO DAILY 06/14/21 06/14/21 Previous Rx's Medication Instructions Recorded lisinopril 10 mg tablet See Rx Instructions .ROUTE 10/18/20 .COMPLEX #90 tab hydrocodone 5 mg-acetaminophen 325 1 tab PO BID PRN #60 tab 06/14/21 mg tablet Allergies Allergy/AdvReac Type Severity Reaction Status Date / Time pollen extracts Allergy Verified 06/14/21 13:23 - Worker's Comp Is this a Worker's Comp case?: No [facility] History - Hepatitis A Screen Drug use history?: No High risk sexual behaviors?: No History of sexually transmitted infection?: No Currently employed?: No Childcare worker?: No Do you have indoor plumbing?: Yes Do you have electricity?: Yes Attestation statement:: This patient has been screened for Hepatitis A risk factors. I have reviewed the patient's past medical history: Yes Medical History: Reports:: Cancer, Hypertension Denies:: Diabetes Mellitus Type 1, Diabetes Mellitus Type 2, Internal Pacemaker, MRSA, Seizures Other Medical History: Reports: Arthritis, Thyroid Disease, Other. Denies: Blood Transfusion Reaction Comment: Abnormal PSA Laterality Cases: Right: Arthroscopy Knee, Other Other Surgeries: Yes: No Previous Surgery, Cancer Surgery, Colonoscopy, Other. No: Pacemaker Amputation: No Fractures: Yes (Right foot) Comment: wisdom teeth, jaw, right eye surgery, vasectomy, prostate - Social History Smoking Status: Former smoker Tobacco Type: cigare
[2021-06-26 12:12] LABS: UTC Strep Screen (Rapid) Negative (Negative)
[2021-06-26 12:15] VITALS: BP 146/89; PULSE 123; RESP 20; TEMP 37.2; O2SAT 95
== END 2021-06-26 12:20 | disposition home or self-care (01) ==
PROVIDERS: Emergency Provider Nurse Practitioner Family; PCP Emergency Medicine
DX: J06.9 Acute upper respiratory infection, unspecified (principal); I10 Essential (primary) hypertension; M79.10 Myalgia, unspecified site; R97.20 Elevated prostate specific antigen [PSA]; Z20.822 Contact with and (suspected) exposure to COVID-19; Z79.899 Other long term (current) drug therapy; Z88.0 Allergy status to penicillin; Z87.891 Personal history of nicotine dependence; Z82.49 Family history of ischemic heart disease and other diseases of the circulatory system; Z83.438 Family history of other disorder of lipoprotein metabolism and other lipidemia; Z83.49 Family history of other endocrine, nutritional and metabolic diseases
CPT/HCPCS: 87804; 87880; 99213; C9803; G0463; U0003; U0005

== ENCOUNTER → 2021-06-27 08:07 | Outpatient (CLI) | payer MEDICARE, SELFPAY ==
[2021-06-27 08:55] VITALS: PULSE 104; PULSE 99
== END ==
PROVIDERS: PCP Emergency Medicine; Visit Provider Emergency Medicine
DX: J44.9 Chronic obstructive pulmonary disease, unspecified (principal)
CPT/HCPCS: 94060; 94618; 94640; 94727; 94729

== ENCOUNTER → 2021-08-12 13:00 | Outpatient (CLI) | payer MEDICARE, SELFPAY ==
[2021-08-12 17:22] LABS: Amphetamine/Metha Screen,Urine Negative ng/ml (<1000)
[2021-08-12 17:23] LABS: Barbiturates Screen,Urine Negative ng/ml (<200)
[2021-08-12 17:24] LABS: Benzodiazepines Screen,Urine Negative ng/ml (<200); Cannabinoid Screen,Urine Negative ng/ml (<50)
[2021-08-12 17:25] LABS: Cocaine Screen,Urine Negative ng/ml (<300)
[2021-08-12 17:26] LABS: Methadone Screen,Urine Negative ng/ml (<300); Opiate Screen,Urine Negative ng/ml (<300)
[2021-08-12 17:27] LABS: Phencyclidine Screen,Urine Negative ng/ml (<25)
== END ==
PROVIDERS: PCP Emergency Medicine; Visit Provider Emergency Medicine
DX: Z79.899 Other long term (current) drug therapy (principal)
CPT/HCPCS: 80305

== ENCOUNTER → 2021-11-24 06:34 | Outpatient (CLI) | payer MEDICARE, SELFPAY ==
[2021-11-24 18:54] LABS: Influenza A, PCR Not Detected (NotDetected); Influenza B, PCR Not Detected (NotDetected)
[2021-11-24 20:28] LABS: Coronavirus 19, PCR Detected (NotDetected)
== END ==
PROVIDERS: PCP Physician Assistant; Visit Provider Physician Assistant
DX: R51.9 Headache, unspecified (principal); U07.1 COVID-19
CPT/HCPCS: C9803; U0003; U0005

== ENCOUNTER → 2022-02-01 13:37 | Outpatient (CLI) | payer MEDICARE, SELFPAY ==
[2022-02-01 19:11] LABS: Amphetamine/Metha Screen,Urine Negative ng/ml (<1000)
[2022-02-01 19:12] LABS: Barbiturates Screen,Urine Negative ng/ml (<200)
[2022-02-01 19:13] LABS: Benzodiazepines Screen,Urine Negative ng/ml (<200); Cannabinoid Screen,Urine Negative ng/ml (<50)
[2022-02-01 19:14] LABS: Cocaine Screen,Urine Negative ng/ml (<300); Methadone Screen,Urine Negative ng/ml (<300)
[2022-02-01 19:16] LABS: Opiate Screen,Urine Negative ng/ml (<300)
[2022-02-01 19:17] LABS: Phencyclidine Screen,Urine Negative ng/ml (<25)
== END ==
PROVIDERS: PCP Emergency Medicine; Visit Provider Emergency Medicine
DX: Z79.899 Other long term (current) drug therapy (principal)
CPT/HCPCS: 80305

== ENCOUNTER → 2022-03-31 11:18 | Outpatient (CLI) | payer MEDICARE, SELFPAY ==
[2022-03-31 14:14] LABS: Amphetamine/Metha Screen,Urine Negative ng/ml (<1000); Barbiturates Screen,Urine Negative ng/ml (<200)
[2022-03-31 14:16] LABS: Benzodiazepines Screen,Urine Negative ng/ml (<200)
[2022-03-31 14:17] LABS: Cannabinoid Screen,Urine Negative ng/ml (<50); Cocaine Screen,Urine Negative ng/ml (<300)
[2022-03-31 14:18] LABS: Methadone Screen,Urine Negative ng/ml (<300)
[2022-03-31 14:19] LABS: Opiate Screen,Urine Negative ng/ml (<300); Phencyclidine Screen,Urine Negative ng/ml (<25)
== END ==
PROVIDERS: PCP Emergency Medicine; Visit Provider Emergency Medicine
DX: Z79.899 Other long term (current) drug therapy (principal)
CPT/HCPCS: 80305

== ENCOUNTER → 2022-05-30 16:22 | Outpatient (CLI) | payer MEDICARE, SELFPAY ==
[2022-05-30 16:02] LABS: Basophils # 0.1 K/mm3 (0-0.2); Basophils % 0.4 % (0.1-2.0); Eosinophils # 0.1 K/mm3 (0.0-0.4); Eosinophils % 1.3 % (0.1-12.0); Hemoglobin 12.6 g/dL (14.1-18.0); Lymphocytes # 2.4 K/mm3 (0.7-4.5); Lymphocytes % 23.2 % (10-50); Mean Corpuscular HGB Conc 32.4 g/dL (31.8-35.4); Mean Corpuscular Hemoglobin 29.6 pg (27.0-31.2); Mean Corpuscular Volume 91.3 fl (80-94); Monocytes # 0.6 K/mm3 (0.1-1.0); Monocytes % 5.5 % (1.7-9.3); Neutrophils # 7.3 K/mm3 (1.8-7.8); Neutrophils % 69.7 % (37.0-80.0); Platelet Count 401 K/mm3 (142-424); Red Blood Count 4.26 M/mm3 (4.60-6.20); White Blood Count 10.5 K/mm3 (4.8-10.8)
[2022-05-30 16:06] LABS: Alanine Aminotransferase 27 U/L (12-78); Albumin Level 4.2 g/dl (3.5-5.0); Albumin/Globulin Ratio 1.2 (1.1-1.8); Alkaline Phosphatase 113 U/L (38-126); Anion Gap 7.1 mEq/L (5-15); Aspartate Amino Transferase 30 U/L (17-59); Bilirubin,Total 0.5 mg/dl (0.2-1.3); Blood Urea Nitrogen 13 mg/dl (9-20); Calcium 9.2 mg/dl (8.4-10.2); Carbon Dioxide 28 mmol/L (22.0-30.0); Chloride 106 mmol/L (98-107); Chol/HDL Ratio 3.1 (1-3.5); Cholesterol 213 mg/dl (140-200); Estimated Glomerular Filt Rate 96 ml/min (>60); GFR (African American) 117 ML/MIN (>60); Globulin 3.4 g/dL (1.3-3.2); Glucose 98 mg/dl (74-100); HDL Cholesterol 68 mg/dl (40-60); Potassium 4.1 mmoL/L (3.5-5.1); Sodium 137 mmol/L (136-145); Total Protein,Serum 7.6 g/dl (6.3-8.2); Triglycerides 123 mg/dl (30-150); VLDL Cholesterol 25 mg/dL (0-40)
[2022-05-30 16:17] LABS: Direct LDL Cholesterol 94.17 mg/dL (100-129)
[2022-05-30 16:22] LABS: Free T4 (Free Thyroxine) 1.49 ng/dl (0.78-2.19)
[2022-05-30 16:23] LABS: 25-OH Vitamin D, Total 29.7 ng/mL (30-100)
[2022-05-30 16:39] LABS: Prostate Specific Ag Screen 0.2 ng/ml (0.0-4.0); Thyroid Stimulating Hormone 1.29 uIU/mL (0.465-4.68)
== END ==
PROVIDERS: PCP Emergency Medicine; Visit Provider Emergency Medicine
DX: R53.83 Other fatigue (principal); E55.9 Vitamin D deficiency, unspecified; Z79.899 Other long term (current) drug therapy; Z12.5 Encounter for screening for malignant neoplasm of prostate
CPT/HCPCS: 80053; 80061; 82306; 84439; 84443; 85025; G0103

== ENCOUNTER → 2022-09-20 11:00 | Outpatient (CLI) | payer MEDICARE, SELFPAY ==
[2022-09-20 13:27] LABS: Amphetamine/Metha Screen,Urine Negative ng/ml (<1000)
[2022-09-20 13:28] LABS: Barbiturates Screen,Urine Negative ng/ml (<200)
[2022-09-20 13:29] LABS: Benzodiazepines Screen,Urine Negative ng/ml (<200)
[2022-09-20 13:30] LABS: Cannabinoid Screen,Urine Negative ng/ml (<50); Cocaine Screen,Urine Negative ng/ml (<300)
[2022-09-20 13:31] LABS: Methadone Screen,Urine Negative ng/ml (<300)
[2022-09-20 13:32] LABS: Opiate Screen,Urine Positive ng/ml (<300); Phencyclidine Screen,Urine Negative ng/ml (<25)
== END ==
PROVIDERS: PCP Emergency Medicine; Visit Provider Emergency Medicine
DX: Z79.899 Other long term (current) drug therapy (principal)
CPT/HCPCS: 80305

== ENCOUNTER 2022-12-01 08:41 | Day surgery (SDC) | payer MEDICARE, SELFPAY ==
[2022-11-30 12:31] VITALS: BMI 31.2
--- NOTE | 2022-12-01 08:52 | EXP.ANES.CKL ---
[facility] Disclaimer: The information contained in this section may have been updated after the patient was seen, as this information can be updated by other users. Medical History Osteoarthritis Surgical History History of prostatectomy Family History Other No significant family history Social History Smoking Status: Former smoker alcohol intake: never substance use type: denies use current occupational status: employed Travel in the last 8 weeks: None household members: spouse housing: house current occupation: board of caffeine: Yes [facility] Anesthesia Checklist Patient Identification Patient Identification: Arm Band and Verbal (Name & ) Structural Data Admitted From: Home Planned Operative Procedure/s: Colonoscopy Consent for Planned Operative Procedure(s) Verified: Yes NPO Status Verified Time NPO: 00:00 Additional verifications Anesthesia Reactions: No Hx Blood Transfusions: No Blood Transfusion Reaction: No Airway Assessment Mallampati Score:: Class I C-Spine Mobility Assessed: Yes TMJ Mobility Assessed: Yes Dentition: Good Dentition Neurological Assessment Level of Consciousness: Awake Hx Seizures: No Numbness or tingling in extremities: No Anesthesia Plan Anesthesia Risk discussed: Yes Anesthesia Plan: Verified ASA Class: II Anesthesia Type: MAC
[2022-12-01 08:56] VITALS: BP 145/82; PULSE 71; RESP 18; TEMP 36.2; O2SAT 99
[2022-12-01 09:20] VITALS: O2SAT 99
--- NOTE | 2022-12-01 09:40 | HMH.SCOPE ---
Procedure: Date: 12/01/22 Patient Date of :: 1955 Procedure Performed:: Total colonoscopy to terminal ileum with polypectomy using snare and biopsy forceps Indications:: Patient is a 66-year-old male. Referred for screening colonoscopy. He does state that he underwent colonoscopy with Dr. Jimenez in 2013 which was reportedly unremarkable. Patient did have prostatectomy for prostate cancer in 2019. He states that following that he had issues with his colon with constipation. He has had some occasional right lower quadrant discomfort. Performing Provider:: Donnie Hood MD Referring Provider:: Aubrey Farfan Sedation:: MAC sedation Procedure:: Patient history was obtained and appropriate physical examination was performed. Patient's medications and allergies were reviewed. Informed consent was obtained after explaining the benefits, alternatives, and risks of the procedure including, but not limited to, bleeding, perforation, missed lesions, and adverse reaction to anesthesia medications. Patient was transported to endoscopy procedure room. Patient was connected to monitoring devices. Throughout the procedure the patient's blood pressure, pulse, and oxygen saturations were monitored continuously. Patient identification and planned procedure were verified by the staff. Patient was positioned in lateral decubitus position. Digital anorectal exam was performed. Variable stiffness Olympus colonoscope was inserted and advanced under direct visualization to the cecum. Adequacy of the colonic preparation was noted. The colonoscope was advanced a short distance into the terminal ileum. The colonoscope was then slowly withdrawn while carefully examining the color, texture, anatomy, and integrity of the mucosoa circumferentially. Within the rectum retroflexion was performed. Colonoscope was then withdrawn. . Near the hepatic flexure there is a tiny diminutive but adenomatous appearing polyp removed with biopsy forceps in a piecemeal fashion. Just distal to this in the proximal transverse colon there was a small adenomatous appearing polyp removed with cold snare with residual polyp removed with biopsy forceps. Within the rectum there were a couple of hyperplastic appearing polyps. One was removed with cold snare and 1 removed with biopsy forceps. Retroflexion revealed some minor internal hemorrhoids. . Findings:: Polyps Recommendations:: Repeat colonoscopy pending pathology. Likely 3 to 5 years Complications:: None immediate Estimated blood obtained (mL): 2 Colonoscopy Component Colonoscopy Component Was a colonoscopy performed during today's procedure?: Yes Recommended follow up colonoscopy of at least 10 years?: No If no, follow up colonoscopy recommended in ___ years?: uncertain Reason for not recommending >/= 10 yr follow-up interval?: Polyp path
[2022-12-01 09:41] VITALS: BP 80/53; PULSE 83; RESP 18; TEMP 36.1; O2SAT 93
[2022-12-01 09:51] VITALS: BP 93/64; PULSE 79; RESP 18; O2SAT 95
[2022-12-01 10:01] VITALS: BP 104/71; PULSE 82; RESP 18; O2SAT 94
[2022-12-01 10:16] VITALS: BP 124/82; PULSE 76; RESP 18; O2SAT 95
== END 2022-12-01 10:19 | disposition home or self-care (01) ==
PROVIDERS: PCP Emergency Medicine; Visit Provider Surgery
PROC: 0DJD8ZZ Inspection of Lower Intestinal Tract, Via Natural or Artificial Opening Endoscopic (ICD-10-PCS; principal; 2022-12-01 09:30)
DX: Z12.11 Encounter for screening for malignant neoplasm of colon (principal); Z85.46 Personal history of malignant neoplasm of prostate; D12.3 Benign neoplasm of transverse colon; D12.8 Benign neoplasm of rectum
CPT/HCPCS: 45380; 45385; 88305

== ENCOUNTER → 2023-03-13 23:36 | Outpatient (CLI) | payer MEDICARE, SELFPAY ==
[2023-03-13 18:40] LABS: Basophils % 0.3 % (0.1-2.0); Eosinophils # 0.2 K/mm3 (0.0-0.4); Eosinophils % 2.2 % (0.1-12.0); Hematocrit 41.2 % (42.0-52.0); Hemoglobin 13.4 g/dL (14.1-18.0); Lymphocytes # 1.4 K/mm3 (0.7-4.5); Lymphocytes % 15.3 % (10-50); Mean Corpuscular HGB Conc 32.5 g/dL (31.8-35.4); Mean Corpuscular Hemoglobin 30.2 pg (27.0-31.2); Mean Corpuscular Volume 92.9 fl (80-94); Mean Platelet Volume 8.8 fl (7.4-10.4); Monocytes # 0.6 K/mm3 (0.1-1.0); Monocytes % 6.1 % (1.7-9.3); Neutrophils # 7.1 K/mm3 (1.8-7.8); Neutrophils % 76.1 % (37.0-80.0); Platelet Count 245 K/mm3 (142-424); Red Blood Count 4.44 M/mm3 (4.60-6.20); Red Cell Distribution Width 14.1 % (11.5-17.5); White Blood Count 9.4 K/mm3 (4.8-10.8)
[2023-03-13 18:53] LABS: Iron 86 ug/dL (49-181)
[2023-03-13 19:07] LABS: Total Iron Binding Capacity 324 ug/dL (261-462)
[2023-03-13 19:12] LABS: 25-OH Vitamin D, Total 105 ng/mL (30-100)
[2023-03-13 19:30] LABS: Ferritin 165 ng/ml (17.9-464)
== END ==
PROVIDERS: PCP Internal Medicine; Visit Provider Internal Medicine
DX: G62.9 Polyneuropathy, unspecified (principal); D64.9 Anemia, unspecified; C61 Malignant neoplasm of prostate; E55.9 Vitamin D deficiency, unspecified
CPT/HCPCS: 82306; 82728; 83540; 83550; 85025

== ENCOUNTER 2023-05-10 12:21 | Outpatient (CLI) | payer MEDICARE, SELFPAY ==
[2023-05-10 12:32] LABS: Basophils # 0.1 K/mm3 (0-0.2); Basophils % 0.4 % (0.1-2.0); Eosinophils # 0.4 K/mm3 (0.0-0.4); Eosinophils % 3.3 % (0.1-12.0); Hemoglobin 13.7 g/dL (14.1-18.0); Lymphocytes # 1.5 K/mm3 (0.7-4.5); Lymphocytes % 13.8 % (10-50); Mean Corpuscular HGB Conc 33.4 g/dL (31.8-35.4); Mean Corpuscular Hemoglobin 30.8 pg (27.0-31.2); Mean Corpuscular Volume 92.3 fl (80-94); Mean Platelet Volume 8.4 fl (7.4-10.4); Monocytes # 0.7 K/mm3 (0.1-1.0); Monocytes % 6.7 % (1.7-9.3); Neutrophils # 8.3 K/mm3 (1.8-7.8); Neutrophils % 75.8 % (37.0-80.0); Platelet Count 217 K/mm3 (142-424); Red Blood Count 4.44 M/mm3 (4.60-6.20); Red Cell Distribution Width 13.9 % (11.5-17.5)
[2023-05-10 12:39] LABS: Creatinine,Urine Random 47 mg/dL (Not Estab.)
[2023-05-10 12:42] LABS: Microalbumin < 6.000 mg/L (0-16.7)
[2023-05-10 13:13] LABS: Chol/HDL Ratio 3.9 (1-3.5); Cholesterol 225 mg/dl (140-200); HDL Cholesterol 58 mg/dl (40-60); Triglycerides 213 mg/dl (30-150); VLDL Cholesterol 43 mg/dL (0-40)
[2023-05-10 13:25] LABS: Direct LDL Cholesterol 110.83 mg/dL (100-129)
[2023-05-10 14:02] LABS: Vitamin B12 822 pg/mL (239-931)
== END 2023-05-10 23:59 ==
LOC: LAB.DROPOF 12:21
PROVIDERS: PCP Internal Medicine; Visit Provider Internal Medicine
DX: D64.9 Anemia, unspecified (principal); R53.83 Other fatigue; E78.5 Hyperlipidemia, unspecified
CPT/HCPCS: 80061; 82043; 82570; 82607; 85025

== ENCOUNTER 2023-05-22 11:26 | Outpatient (CLI) | payer MEDICARE, SELFPAY ==
[2023-05-22 12:00] LABS: Basophils % 0.2 % (0.1-2.0); Eosinophils # 0.2 K/mm3 (0.0-0.4); Eosinophils % 2.7 % (0.1-12.0); Hematocrit 39.4 % (42.0-52.0); Hemoglobin 13.2 g/dL (14.1-18.0); Lymphocytes # 1.5 K/mm3 (0.7-4.5); Lymphocytes % 18.9 % (10-50); Mean Corpuscular HGB Conc 33.4 g/dL (31.8-35.4); Mean Corpuscular Volume 92.7 fl (80-94); Mean Platelet Volume 7.9 fl (7.4-10.4); Monocytes # 0.5 K/mm3 (0.1-1.0); Neutrophils # 5.9 K/mm3 (1.8-7.8); Neutrophils % 72.2 % (37.0-80.0); Platelet Count 259 K/mm3 (142-424); Red Blood Count 4.26 M/mm3 (4.60-6.20); Red Cell Distribution Width 13.5 % (11.5-17.5); Reticulocyte % (Auto) 1.4 % (0.9-3.2); White Blood Count 8.2 K/mm3 (4.8-10.8)
[2023-05-22 12:46] LABS: Lactate Dehydrogenase 184 U/L (313-618)
[2023-05-23 07:12] LABS: Haptoglobin 231 mg/dL (32-363)
== END 2023-05-22 23:59 ==
LOC: LAB 11:27
PROVIDERS: PCP Internal Medicine; Visit Provider Internal Medicine Medical Oncology
DX: C61 Malignant neoplasm of prostate (principal)
CPT/HCPCS: 36415; 82746; 83010; 83615; 85025; 85044; 86880

== ENCOUNTER 2023-08-02 08:46 | Outpatient (CLI) | payer MEDICARE, SELFPAY ==
[2023-08-02 10:35] LABS: Prostate Specific Ag, Diagnost < 0.064 ng/ml (0.0-4.0)
== END 2023-08-02 23:59 | disposition home or self-care (01) ==
LOC: LAB 08:49
PROVIDERS: PCP Internal Medicine; Visit Provider Internal Medicine Medical Oncology
DX: Z85.46 Personal history of malignant neoplasm of prostate (principal)
CPT/HCPCS: 36415; 84153

== ENCOUNTER 2023-11-22 10:12 | Outpatient (CLI) | payer MEDICARE, SELFPAY ==
[2023-11-22 23:23] LABS: Prostate Specific Ag Screen 0.2 ng/ml (0.0-4.0)
== END 2023-11-22 23:59 | disposition home or self-care (01) ==
LOC: LAB.DROPOF 11-24 19:21
PROVIDERS: PCP Internal Medicine; Visit Provider Internal Medicine
DX: Z12.5 Encounter for screening for malignant neoplasm of prostate (principal)
CPT/HCPCS: G0103

== ENCOUNTER 2023-11-28 13:00 | Outpatient (CLI) | payer MEDICARE, SELFPAY ==
[2023-11-29 14:19] LABS: Prostate Specific Ag, Diagnost 0.249 ng/ml (0.0-4.0)
== END 2023-11-28 23:59 | disposition home or self-care (01) ==
LOC: LAB.DROPOF 12-14 15:24
PROVIDERS: PCP Internal Medicine Medical Oncology; Visit Provider Internal Medicine Medical Oncology
DX: C61 Malignant neoplasm of prostate (principal)
CPT/HCPCS: 36415; 84153

== ENCOUNTER 2023-12-17 08:08 | Outpatient (CLI) | payer MEDICARE, SELFPAY ==
--- NOTE | 2023-12-17 08:27 | XR_ITS ---
FINAL REPORT CLINICAL HISTORY: Foot pain COMPARISON: None FINDINGS: RIGHT FOOT: Three views of the right foot were obtained. There is no acute fracture or dislocation. There are mild degenerative changes. A pes planus deformity is identified. There is no soft tissue abnormality. IMPRESSION: Degenerative changes without acute bony abnormality. Reviewed, Interpreted and Dictated by Donnie Michelle III, MD Transcribed by Dagmar Rod Authenticated and [facility]
--- NOTE | 2023-12-17 08:27 | XR_ITS ---
FINAL REPORT CLINICAL HISTORY: Foot pain COMPARISON: None FINDINGS: LEFT FOOT: Three views of the left foot were obtained. There is no acute fracture or dislocation. There are mild degenerative changes. A pes planus deformity is identified. There is no soft tissue abnormality. IMPRESSION: Degenerative changes without acute bony abnormality. Reviewed, Interpreted and Dictated by Donnie Michelle III, MD Transcribed by Dagmar Rod Authenticated and [facility]
== END 2023-12-17 23:59 | disposition home or self-care (01) ==
LOC: RAD 08:10
PROVIDERS: PCP Internal Medicine; Visit Provider Podiatrist
DX: M79.671 Pain in right foot (principal); M79.672 Pain in left foot
CPT/HCPCS: 73630

== ENCOUNTER 2024-02-20 09:51 | Outpatient (CLI) | payer MEDICARE, SELFPAY ==
[2024-02-20 11:07] LABS: Prostate Specific Ag, Diagnost 0.901 ng/ml (0.0-4.0)
== END 2024-02-20 23:59 | disposition home or self-care (01) ==
LOC: LAB 09:52
PROVIDERS: PCP Internal Medicine; Visit Provider Internal Medicine Medical Oncology
DX: C61 Malignant neoplasm of prostate (principal); D64.9 Anemia, unspecified
CPT/HCPCS: 36415; 84153

== ENCOUNTER 2024-02-27 14:25 | Outpatient (CLI) | payer MEDICARE, SELFPAY ==
--- NOTE | 2024-02-27 14:29 | CT_ITS ---
FINAL REPORT TECHNIQUE: Axial CT images of the chest were obtained without contrast. Low-dose protocol was utilized. This study was performed with techniques to keep radiation doses as low as reasonably achievable (ALARA). Individualized dose reduction techniques using automated exposure control or adjustment of mA and/or kV according to the patient's size were employed. CLINICAL HISTORY: lung cancer screening FORMER SMOKER , QUIT 10 YEARS AGO, PREVIOUSLY SMOKED 1 PPD X 55 YEARS COMPARISON: None FINDINGS: CT CHEST WITHOUT, LOW DOSE SCREENING CT Di Vol: 2.90 mGy DLP: 96.38 mGy*cm There are multiple small mediastinal lymph nodes. Bilateral axillary lymph nodes are noted, largest is on the right measuring up to 2.3 cm. The heart size is normal. Mild coronary artery calcifications are noted. There is no pleural or pericardial effusion. The lung windows show a small grouping of noncalcified nodules in the periphery of the right upper lobe. Individual nodules measure up to 4 mm. These nodules are well seen on axial images 24 through 27 of series 604. Limited images of the upper abdomen demonstrate no acute findings. IMPRESSION: Small grouping of nodules in the periphery of the right upper lobe, indeterminate. LR Category 2: 12 month follow-up low-dose chest CT is recommended per Fleischner criteria. Reviewed, Interpreted and Dictated by Perico Garcia MD Transcribed by Skylar Faith Authenticated and [facility]
[2024-02-27 15:45] VITALS: PULSE 81; PULSE 87
[2024-02-27] MEDS: ALBUTEROL 0.083% 2.5 MG/3 ML NEB IH (15:45)
== END 2024-02-27 23:59 | disposition home or self-care (01) ==
LOC: RAD 14:26
PROVIDERS: PCP Internal Medicine; Visit Provider Internal Medicine Pulmonary Disease
DX: R06.09 Other forms of dyspnea (principal); F17.210 Nicotine dependence, cigarettes, uncomplicated
CPT/HCPCS: 71271; 94060; 94618; 94640; 94726; 94729; J7613

== ENCOUNTER 2024-05-15 09:20 | Outpatient (CLI) | payer MEDICARE, SELFPAY ==
[2024-05-15 19:28] LABS: Basophils # 0.1 K/mm3 (0-0.2); Basophils % 0.5 % (0.1-2.0); Eosinophils # 0.2 K/mm3 (0.0-0.4); Eosinophils % 2.6 % (0.1-12.0); Hematocrit 39.4 % (42.0-52.0); Hemoglobin 12.6 g/dL (14.1-18.0); Lymphocytes # 1.2 K/mm3 (0.7-4.5); Lymphocytes % 12.7 % (10-50); Mean Corpuscular Hemoglobin 29.7 pg (27.0-31.2); Mean Corpuscular Volume 92.9 fl (80-94); Mean Platelet Volume 9.6 fl (7.4-10.4); Monocytes # 0.7 K/mm3 (0.1-1.0); Monocytes % 7.4 % (1.7-9.3); Neutrophils % 76.6 % (37.0-80.0); Platelet Count 269 K/mm3 (142-424); Red Blood Count 4.24 M/mm3 (4.60-6.20); Red Cell Distribution Width 13.4 % (11.5-17.5); White Blood Count 9.1 K/mm3 (4.8-10.8)
[2024-05-15 20:06] LABS: Alanine Aminotransferase 25 U/L (12-78); Albumin Level 4.1 g/dl (3.5-5.0); Albumin/Globulin Ratio 1.6 (1.1-1.8); Alkaline Phosphatase 87 U/L (38-126); Anion Gap 15.2 mEq/L (5-15); Aspartate Amino Transferase 30 U/L (17-59); Bilirubin,Total 0.4 mg/dl (0.2-1.3); Blood Urea Nitrogen 15 mg/dl (9-20); Calcium 9.3 mg/dl (8.4-10.2); Carbon Dioxide 28 mmol/L (22.0-30.0); Chloride 101 mmol/L (98-107); Estimated Glomerular Filt Rate 96 ml/min (>60); GFR (African American) 116 ML/MIN (>60); Globulin 2.5 g/dL (1.3-3.2); Glucose 90 mg/dl (74-100); Potassium 4.2 mmoL/L (3.5-5.1); Sodium 140 mmol/L (136-145); Total Protein,Serum 6.6 g/dl (6.3-8.2)
[2024-05-15 20:12] LABS: 25-OH Vitamin D, Total 51.8 ng/mL (30-100)
[2024-05-15 20:15] LABS: Creatinine,Urine Random 44 mg/dL (Not Estab.); Microalbumin < 6.000 mg/L (0-16.7)
== END 2024-05-15 23:59 | disposition home or self-care (01) ==
LOC: LAB.DROPOF 05-16 12:45
PROVIDERS: PCP Internal Medicine; Visit Provider Internal Medicine
DX: E55.9 Vitamin D deficiency, unspecified (principal); D64.9 Anemia, unspecified; E11.9 Type 2 diabetes mellitus without complications; Z87.891 Personal history of nicotine dependence; L40.9 Psoriasis, unspecified; M25.511 Pain in right shoulder; G89.29 Other chronic pain; J43.9 Emphysema, unspecified; I10 Essential (primary) hypertension; C61 Malignant neoplasm of prostate; I65.23 Occlusion and stenosis of bilateral carotid arteries; M25.521 Pain in right elbow
CPT/HCPCS: 80053; 82043; 82306; 82570; 85025

== ENCOUNTER 2024-09-23 11:41 | Outpatient (CLI) | payer MEDICARE, SELFPAY ==
--- OUTSIDE RECORDS SUMMARY | 2024-09-23 11:44 | XMS_ITS ---
Author Organization Healthcare Address [address] [place] [address] Care Team Providers Care House Wirer Name Role Phone Herbie Meek DO Primary Care Provider [phone] Active Problems Problem Noted Date Diagnosed Date Prostate cancer 11/20/2019 Cancer Staging:Pathologic stage from 01/04/2023:Stage IIIB(ypT3a, ypN0, cM0, PSA: 12.6, Grade Group: 3) - Signed by Bert Adams MD on 01/04/2023 Current Treatment and Therapy Plans No current plan information found. Past Treatment and Therapy Plans No past plan information found. Past Radiation Episodes * SBRT: Right Pelvic lymph nodeOverview* First Treatment Date Last Treatment Date Treatment Site Technique Goal Episode Provider 05/09/2024 05/19/2024 Right Pelvic lymph node SBRT Curative * Linked Problems Prostate cancer Treatment Courses* Course C2 05/09/2024 - 05/19/2024 Treatment Period Fraction Dose Fractions Total Dose Plans Planned Rt Iliac LN 05/09/2024 - 05/19/2024 725 cGy 5 / 5 3,625 cGy Reference Points Delivered R Iliac LN 05/09/2024 - 05/19/2024 3,625 cGy * VMAT: Midline Prostate bedOverview* First Treatment Date Last Treatment Date Treatment Site Technique Goal Episode Provider 01/02/2023 05/20/2024 Midline Prostate bed VMAT Curative * Linked Problems Prostate cancer Treatment Courses* Course IMRT QA 05/20/2024 - 05/20/2024 Treatment Period Fraction Dose Fractions Total Dose Plans Planned Prost Fossa 05/20/2024 - 05/20/2024 200 cGy 0 / [address] 05/20/2024 - 05/20/2024 725 cGy 0 / 1 725 cGy Reference Points Delivered Verification 05/20/2024 - 05/20/2024 0 cGy Verification1 05/20/2024 - 05/20/2024 0 cGy * Course C1 01/02/2023 - 02/15/2023 Treatment Period Fraction Dose Fractions Total Dose Plans Planned Prost Fossa 01/02/2023 - 02/15/2023 200 cGy 33 / 33 6,600 cGy Reference Points Delivered PTV 01/02/2023 - 02/15/2023 6,600 cGy
--- OUTSIDE RECORDS SUMMARY | 2024-09-23 11:44 | XMS_ITS | Clinical Summary ---
Author Organization [facility] Address [address] [place] [address] Care Team Providers Care Gluing Machine Adjuster Name Role Phone Herbie Meek DO Primary Care Provider [phone] Allergies Active Allergy Reactions Criticality Noted Date Comments Gramineae Pollens Runny nose Low 12/01/2022 Medications acetaminophen (Tylenol) 325 MG tablet 2 tab(s) orally every 4 hours, As Needed Active fluticasone (Flonase) 50 MCG/ACT nasal spray 1 spray(s) nasal once a day, As Needed Active lisinopril 10 MG tablet TAKE 1 TABLET BY MOUTH ONCE DAILY 0 Active HYDROcodone-abhijeet taminophen ([place]) 5-325 MG tablet TAKE 1 TABLET BY MOUTH TWICE DAILY NEEDED FOR PAIN 0 Active Multiple Vitamins-Iron tablet 0 Active zinc gluconate 50 MG tablet Take 1 tablet (50 mg) by mouth 1 (one) time each day. Active IRON, FERROUS SULFATE, PO Take 300 mg by mouth. Active Vitamin D3 125 MCG (5000 UT) capsule Take 1 capsule (5,000 Units) by mouth 1 (one) time per week. 3 Active Vitamin D3 1.25 MG (22029 UT) capsule TAKE 1 CAPSULE BY MOUTH ONCE A WEEK FOR VITAMIN D DEFICIENCY 3 Active azithromycin (Zithromax) 250 MG tablet 5 Active predniSONE (Deltasone) 20 MG tablet 5 Active Active Problems Problem Noted Date Diagnosed Date Prostate cancer 11/20/2019 Cancer Staging:Pathologic stage from 01/04/2023:Stage IIIB(ypT3a, ypN0, cM0, PSA: 12.6, Grade Group: 3) - Signed by Bert Adams MD on 01/04/2023 Social History Tobacco Use Types Packs/Day Years Used Date Smoking Tobacco: Former Cigarettes 1 48 1 965 - 2013 Smokeless Tobacco: Never Tobacco Cessation:Counseling Given: Not Answered Comments:Former heavy cigarette smoker (20-39 per day) Alcohol Use Standard Drinks/Week Comments Yes 0 (1 standard drink = 0.6 oz pure alcohol) Alcoholic Drinks/day: Occasional alcohol use PHQ-2 Answer Date Recorded Patient Health Questionnaire-2 Score 0 04/17/2024 PHQ-9 Answer Date Recorded Patient Health Questionnaire-9 Score 0 04/17/2024 PHQ-2A Answer Date Recorded Depression Risk 0 12/20/2022 Sex and Gender Information Value Date Recorded Sex Assigned at Not on file Legal Sex Male 8:33 PM EDT Gender Identity Not on file Sexual Orientation Not on file Last Filed Vital Signs Vital Sign Reading Time Taken Comments Blood Pressure 133/80 06/16/2024 3:16 PM EDT Pulse 81 06/16/2024 3:16 PM EDT Temperature 36.5 C (97.7 F) 06/16/2024 3:16 PM EDT Respiratory Rate 16 06/16/2024 3:16 PM EDT Oxygen Saturation 95% 06/16/2024 3:16 PM EDT Inhaled Oxygen Concentration - - Weight 74.8 kg (164 lb 14.5 oz) 06/16/2024 3:16 PM EDT Height 177.8 cm (5' 10 ) 04/17/2024 2:52 PM EST Body Mass Index 23.66 04/17/2024 2:52 PM EST Plan of Treatment Health Maintenance Due Date Last Done Comments [facility]-Hepatitis C Screening 1955 [facility]-Medicare Annual Wellness (AWV) 1955 [facility]-Infant/Child/Adol SDOH Screenings 1955 [facility]- SDOH Screenings 1972 [facility]-Adult SDOH Screenings 1972 [facility]-Zoster Vaccines (1 of 2) 1973 [facility]-DTaP,Tdap,and Td Vaccine s (1 - Tdap) 06/17/1996 06/16/1996 CT Colonography 12/29/1999 Colonoscopy 12/29/1999 FIT-DNA 12/29/1999 FIT 12/29/1999 FOBT 12/29/1999 Sigmoidoscopy 12/29/1999 [facility]-Colorectal Cancer Screening 12/29/1999 [facility]-Lung Cancer Screening 2004 [facility]-RSV Vaccine: 60+ Years o r (1 - Risk 60-74 years 1-dose series) 2014 [facility]-Abdominal Aortic Aneurys m (AAA) Screening 12/29/2019 [id number] Vaccine (2 - Moderna risk series) 06/02/2020 05/05/2020 [facility]-Pneumococcal Vaccine: 50 + Years (2 of 2 - PCV) 12/03/2020 12/04/2019 [facility]-Influenza Vaccine ([place] Ended) 2024 12/04/2019 [facility]-Depression Screening 04/17/2025 025, 04/17/2024, 12/20/2022 HPV Vaccines Aged Out No longer eligi ble based on patient's age to complete this topic [facility]-HIB Vaccines Aged Out No longer e ligible based on patient's age to complete this topic [facility]-Hepatitis A Vaccines Aged Out No longer eligible based on patient's age to complete this topic [facility]-IPV Vaccines Aged Out No longer e ligible based on patient's age to complete this topic [facility]-Rotavirus Vaccines Aged Out No lo nger eligible based on patient's age to complete this topic Insurance [facility] [place] [id number] [employer] Care Teams Gluing Machine Adjuster Relationship Specialty Start Date End Date Herbie Meek DO [address] [place] [id number] PCP - General 03/27/23
[2024-09-23 12:29] LABS: Basophils # 0.1 K/mm3 (0-0.2); Basophils % 0.6 % (0.1-2.0); Eosinophils # 0.1 Kmm3 (0.0-0.4); Eosinophils % 1.6 % (0.1-12.0); Hematocrit 38.7 % (42.0-52.0); Hemoglobin 12.3 g/dL (14.1-18.0); Immature Granulocytes # 0.01 10^3uL; Immature Granulocytes % 0.1 %; Lymphocytes # 1.5 K/mm3 (0.7-4.5); Lymphocytes % 18.7 % (10-50); Mean Corpuscular HGB Conc 31.8 g/dL (31.8-35.4); Mean Corpuscular Hemoglobin 28.9 pg (27.0-31.2); Mean Corpuscular Volume 90.8 fl (80-94); Mean Platelet Volume 9.3 fl (7.4-10.4); Monocytes # 0.6 K/mm3 (0.1-1.0); Monocytes % 7.3 % (1.7-9.3); Neutrophils # 5.7 K/mm3 (1.8-7.8); Neutrophils % 71.7 % (37.0-80.0); Nucleated Red Blood Cells # 0 10^3/uL; Nucleated Red Blood Cells % 0 %; Platelet Count 250 K/mm3 (142-424); Red Blood Count 4.26 M/mm3 (4.60-6.20); Red Cell Distribution Width 13.6 % (11.5-17.5); Red Cell Distribution Width-SD 45.9 fL
[2024-09-23 13:02] LABS: Alanine Aminotransferase 20 U/L (12-78); Albumin Level 4.2 g/dl (3.5-5.0); Albumin/Globulin Ratio 1.3 (1.1-1.8); Alkaline Phosphatase 96 U/L (38-126); Anion Gap 7.5 mEq/L (5-15); Aspartate Amino Transferase 29 U/L (17-59); Bilirubin,Total 0.7 mg/dl (0.2-1.3); Blood Urea Nitrogen 18 mg/dl (9-20); Carbon Dioxide 29 mmol/L (22.0-30.0); Chloride 104 mmol/L (98-107); Estimated Glomerular Filt Rate 84 ml/min (>60); GFR (African American) 101 ML/MIN (>60); Globulin 3.3 g/dL (1.3-3.2); Glucose 97 mg/dl (74-100); Potassium 4.5 mmoL/L (3.5-5.1); Sodium 136 mmol/L (136-145); Total Protein,Serum 7.5 g/dl (6.3-8.2)
[2024-09-23 13:33] LABS: Prostate Specific Ag, Diagnost 0.181 ng/ml (0.0-4.0)
== END 2024-09-23 23:59 | disposition home or self-care (01) ==
LOC: LAB 11:42
PROVIDERS: PCP Internal Medicine; Visit Provider Internal Medicine Medical Oncology
DX: C61 Malignant neoplasm of prostate (principal)
CPT/HCPCS: 36415; 80053; 84153; 85025

== ENCOUNTER 2024-10-08 09:27 | Outpatient (CLI) | payer MEDICARE, SELFPAY ==
[2024-10-08 15:10] LABS: INR 0.96 (0.9-1.1); Prothrombin Time 10.7 seconds (10.1-12.5)
[2024-10-08 15:28] LABS: Cholesterol 205 mg/dl (140-200); HDL Cholesterol 70 mg/dl (40-60); Triglycerides 67 mg/dl (30-150)
--- OUTSIDE RECORDS SUMMARY | 2024-10-13 09:32 | XMS_ITS | Clinical Summary ---
Author Organization [facility] Address [address] [place] [address] Care Team Providers Care Clinical Rn Manager Name Role Phone Herbie Meek DO Primary Care Provider [phone] Allergies Active Allergy Reactions Criticality Noted Date Comments Gramineae Pollens Runny nose Low 12/01/2022 Medications acetaminophen (Tylenol) 325 MG tablet 2 tab(s) orally every 4 hours, As Needed Active fluticasone (Flonase) 50 MCG/ACT nasal spray 1 spray(s) nasal once a day, As Needed Active lisinopril 10 MG tablet TAKE 1 TABLET BY MOUTH ONCE DAILY 0 Active HYDROcodone-abhijeet taminophen ([place]) 5-325 MG tablet TAKE 1 TABLET BY [...] week. 3 Active Vitamin D3 1.25 MG (02901 UT) capsule TAKE 1 CAPSULE BY MOUTH [...] [facility]-Abdominal Aortic Aneurys m (AAA) Screening 12/29/2019 [id number] Vaccine (2 - Moderna risk series) 06/02/2020 05/05/2020 [facility]-Pneumococcal Vaccine: 50 + Years (2 of 2 - PCV) 12/03/2020 12/04/2019 [facility]-Influenza Vaccine (#1) 2024 12/04/2019 [facility]-Depression Screening 04/17/2025 025, 04/17/2024, [...] patient's age to complete this topic Insurance [employer] Care Teams Clinical Rn Manager Relationship Specialty Start Date End Date Herbie Meek DO [address] [place] [id number] PCP - General 03/27/23
--- OUTSIDE RECORDS SUMMARY | 2024-10-13 09:32 | XMS_ITS ---
Author Organization Healthcare Address [address] [place] [address] Care Team Providers Care Vice President Media Relations Name Role Phone Herbie Meek DO Primary Care Provider [phone] Active Problems Problem Noted Date Diagnosed Date [...]
== END 2024-10-08 23:59 | disposition home or self-care (01) ==
LOC: LAB.DROPOF 10-13 09:28
PROVIDERS: PCP Internal Medicine; Visit Provider Internal Medicine
DX: T14.8XXA Other injury of unspecified body region, initial encounter (principal); Z13.220 Encounter for screening for lipoid disorders
CPT/HCPCS: 80061; 85610

== ENCOUNTER 2024-12-18 09:01 | Outpatient (CLI) | payer MEDICARE, SELFPAY ==
[2024-12-18 09:23] LABS: Hematocrit 38.5 % (42.0-52.0); Hemoglobin 12.0 g/dL (14.1-18.0); Immature Granulocytes % 0.2 %; Mean Corpuscular HGB Conc 31.2 g/dL (31.8-35.4); Mean Corpuscular Hemoglobin 28.3 pg (27.0-31.2); Mean Corpuscular Volume 90.8 fl (80-94); Nucleated Red Blood Cells % 0 %; Platelet Count 226 K/mm3 (142-424); Red Blood Count 4.24 M/mm3 (4.60-6.20); Red Cell Distribution Width-SD 47.4 fL; White Blood Count 9.1 K/mm3 (4.8-10.8)
--- OUTSIDE RECORDS SUMMARY | 2024-12-18 09:23 | XMS_ITS | Clinical Summary ---
Author Organization [facility] Address [address] [place] [address] Care Team Providers Care Education And Outreach Coordinator Name Role Phone Herbie Meek DO Primary Care Provider [phone] Allergies Active Allergy Reactions Criticality Noted Date Comments Gramineae Pollens Runny nose Low 12/01/2022 Medications acetaminophen (Tylenol) 325 MG tablet 2 tab(s) orally every 4 hours, As Needed Active fluticasone (Flonase) 50 MCG/ACT nasal spray 1 spray(s) nasal once a day, As Needed Active lisinopril 10 MG tablet TAKE 1 TABLET BY MOUTH ONCE DAILY 0 Active HYDROcodone-abhijeet taminophen ([place]) 5-325 MG tablet TAKE 1 TABLET BY [...] week. 3 Active Vitamin D3 1.25 MG (68585 UT) capsule TAKE 1 CAPSULE BY MOUTH [...] [facility]-Abdominal Aortic Aneurys m (AAA) Screening 12/29/2019 [id number] Vaccine (2 - Moderna risk series) 06/02/2020 [...] this topic Insurance [employer] Care Teams Education And Outreach Coordinator Relationship Specialty Start Date End Date Herbie Meek DO [address] [place] [id number] PCP - General 03/27/23
--- OUTSIDE RECORDS SUMMARY | 2024-12-18 09:23 | XMS_ITS ---
Author Organization Healthcare Address [address] [place] [address] Care Team Providers Care Director Of Anesthesia Services Name Role Phone Herbie Meek DO Primary Care Provider [phone] Active Problems Problem Noted Date Diagnosed Date [...]
[2024-12-18 09:47] LABS: Alanine Aminotransferase 24 U/L (12-78); Albumin Level 4.1 g/dl (3.5-5.0); Albumin/Globulin Ratio 1.4 (1.1-1.8); Alkaline Phosphatase 82 U/L (38-126); Anion Gap 9.5 mEq/L (5-15); Aspartate Amino Transferase 31 U/L (17-59); Bilirubin,Total 0.4 mg/dl (0.2-1.3); Blood Urea Nitrogen 15 mg/dl (9-20); Calcium 9.3 mg/dl (8.4-10.2); Carbon Dioxide 28 mmol/L (22.0-30.0); Chloride 106 mmol/L (98-107); Creatinine,Serum 0.90 mg/dl (0.66-1.25); Estimated Glomerular Filt Rate 84 ml/min (>60); GFR (African American) 101 ML/MIN (>60); Globulin 3.0 g/dL (1.3-3.2); Glucose 94 mg/dl (74-100); Potassium 4.5 mmoL/L (3.5-5.1); Sodium 139 mmol/L (136-145); Total Protein,Serum 7.1 g/dl (6.3-8.2)
[2024-12-18 10:17] LABS: Prostate Specific Ag, Diagnost 0.113 ng/ml (0.0-4.0)
== END 2024-12-18 23:59 | disposition home or self-care (01) ==
LOC: LAB 09:02
PROVIDERS: PCP Internal Medicine; Visit Provider Internal Medicine Medical Oncology
DX: C61 Malignant neoplasm of prostate (principal)
CPT/HCPCS: 36415; 80053; 84153; 85025

== ENCOUNTER 2025-02-05 15:13 | Outpatient (CLI) | payer MEDICARE, SELFPAY ==
--- OUTSIDE RECORDS SUMMARY | 2025-02-05 15:16 | XMS_ITS | Clinical Summary ---
Author Organization [facility] Address [address] [place] [address] Care Team Providers Care Business Management Professor Name Role Phone Herbie Meek DO Primary Care Provider [phone] Allergies Active Allergy Reactions Criticality Noted Date Comments Gramineae Pollens Runny nose Low 12/01/2022 Medications acetaminophen (Tylenol) 325 MG tablet 2 tab(s) orally every 4 hours, As Needed Active fluticasone (Flonase) 50 MCG/ACT nasal spray 1 spray(s) nasal once a day, As Needed Active lisinopril 10 MG tablet TAKE 1 TABLET BY MOUTH ONCE DAILY 0 Active HYDROcodone-abhijeet taminophen ([place]) 5-325 MG tablet TAKE 1 TABLET BY [...] week. 3 Active Vitamin D3 1.25 MG (71295 UT) capsule TAKE 1 CAPSULE BY MOUTH [...] 12/29/1999 Sigmoidoscopy 12/29/1999 [facility]-Colorectal Cancer Screening 12/29/1999 Lung Cancer Screening Shared Decision Making 2004 [facility]-Lung Cancer Screening 2004 [facility]-RSV Vaccine: 60+ Years o r (1 - Risk 60-74 years 1-dose series) 2014 [facility]-Abdominal Aortic Aneurys m (AAA) Screening 12/29/2019 [id number] Vaccine (2 - Moderna risk series) 06/02/2020 [...] patient's age to complete this topic Insurance [place] [id number] [employer] Care Teams Business Management Professor Relationship Specialty Start Date End Date Herbie Meek DO [address] [place] [phone] PCP - General 03/27/23
--- OUTSIDE RECORDS SUMMARY | 2025-02-05 15:16 | XMS_ITS ---
Author Organization Healthcare Address [address] [place] [address] Care Team Providers Care Hedis Registered Nurse Rn Name Role Phone Herbie Meek DO Primary Care Provider [phone] Active Problems Problem Noted Date Diagnosed Date [...]
[2025-02-05 15:42] LABS: Blood Urea Nitrogen 17 mg/dl (9-20); Creatinine,Serum 0.80 mg/dl (0.66-1.25); Estimated Glomerular Filt Rate 96 ml/min (>60); GFR (African American) 116 ML/MIN (>60)
== END 2025-02-05 23:59 | disposition home or self-care (01) ==
LOC: LAB 15:14
PROVIDERS: PCP Internal Medicine; Visit Provider Internal Medicine Medical Oncology
DX: C61 Malignant neoplasm of prostate (principal)
CPT/HCPCS: 36415; 82565; 84520

== ENCOUNTER 2025-02-06 07:55 | Outpatient (CLI) | payer MEDICARE, SELFPAY ==
--- OUTSIDE RECORDS SUMMARY | 2025-02-06 07:58 | XMS_ITS | Clinical Summary ---
Author Organization [facility] Address [address] [place] [address] Care Team Providers Care Fixing Carpenter Name Role Phone Herbie Meek DO Primary Care Provider [phone] Allergies Active Allergy Reactions Criticality Noted Date Comments Gramineae Pollens Runny nose Low 12/01/2022 Medications acetaminophen (Tylenol) 325 MG tablet 2 tab(s) orally every 4 hours, As Needed Active fluticasone (Flonase) 50 MCG/ACT nasal spray 1 spray(s) nasal once a day, As Needed Active lisinopril 10 MG tablet TAKE 1 TABLET BY MOUTH ONCE DAILY 0 Active HYDROcodone-abhijeet taminophen ([place]) 5-325 MG tablet TAKE 1 TABLET BY [...] week. 3 Active Vitamin D3 1.25 MG (66173 UT) capsule TAKE 1 CAPSULE BY MOUTH [...] [facility]-Abdominal Aortic Aneurys m (AAA) Screening 12/29/2019 [id number] Vaccine (2 - Moderna risk series) 06/02/2020 [...] to complete this topic Insurance [place] [id number] [employer] Care Teams Fixing Carpenter Relationship Specialty Start Date End Date Herbie Meek DO [address] [place] [id number] PCP - General 03/27/23
--- OUTSIDE RECORDS SUMMARY | 2025-02-06 07:58 | XMS_ITS ---
Author Organization Healthcare Address [address] [place] [address] Care Team Providers Care Supervisor Fleshing Name Role Phone Herbie Meek DO Primary Care Provider [phone] Active Problems Problem Noted Date Diagnosed Date [...]
--- NOTE | 2025-02-06 08:00 | CT_ITS ---
FINAL REPORT TECHNIQUE: CT examination of the abdomen and pelvis was performed with and without intravenous contrast from the lung bases through the pelvis. Multiplanar reconstructions in the sagittal and coronal planes were subsequently performed. This study was performed with techniques to keep radiation doses as low as reasonably achievable (ALARA). Individualized dose reduction techniques using automated exposure control or adjustment of mA and/or kV according to the patient's size were employed. CLINICAL HISTORY: Prostate Cancer COMPARISON: None FINDINGS: CT ABDOMEN PELVIS WITH AND WITHOUT CONTRAST: The lung bases are clear. Moderate coronary artery calcifications are noted. The liver is normal in size and attenuation. The spleen is unremarkable other than calcified granulomas. The adrenals are normal. The pancreas is unremarkable. There is a benign appearing cyst in the periphery of the right kidney measuring 3.7 cm in size. Precontrast images demonstrate no nephrolithiasis. A moderate amount of stool is present in the colon. The bladder is contracted. The prostate is not well-visualized. There are tiny sclerotic foci in the right femoral head, right ischium, measuring approximately 5 mm in size, nonspecific. IMPRESSION: Tiny sclerotic foci in the right femoral head, right ischium, measuring approximately 5 mm in size, nonspecific. The prostate is not well-visualized on this examination in this patient with a clinical history of prostate carcinoma. Reviewed, Interpreted and Dictated by Perico Garcia MD Transcribed by Raiza Carrizales Authenticated and [facility]
[2025-02-06] MEDS: SODIUM CHLORIDE 0.9% 10ML SYR (RAD ONLY) 10 ML IV (08:23)
[2025-02-06] MEDS: BARIUM SULFATE(READI-CAT2);450ML BOTTLE 450 ML PO (08:23)
[2025-02-06] MEDS: IOPAMIDOL-370 (76%);100ML BOTTLE 75 ML IV (08:23)
== END 2025-02-06 23:59 | disposition home or self-care (01) ==
LOC: RAD 07:57
PROVIDERS: PCP Internal Medicine; Visit Provider Internal Medicine Medical Oncology
DX: C61 Malignant neoplasm of prostate (principal); R93.7 Abnormal findings on diagnostic imaging of other parts of musculoskeletal system
CPT/HCPCS: 74178; Q9967

== ENCOUNTER 2025-02-16 07:21 | Outpatient (CLI) | payer MEDICARE, SELFPAY ==
--- OUTSIDE RECORDS SUMMARY | 2025-02-16 07:23 | XMS_ITS ---
Author Organization Healthcare Address [address] [place] [address] Care Team Providers Care Centrifugal Drier Operator Name Role Phone Herbie Meek DO Primary Care Provider [phone] Active Problems Problem Noted Date Diagnosed Date [...]
--- OUTSIDE RECORDS SUMMARY | 2025-02-16 07:23 | XMS_ITS | Clinical Summary ---
Author Organization [facility] Address [address] [place] [address] Care Team Providers Care Edging Machine Feeder Name Role Phone Herbie Meek DO Primary Care Provider [phone] Allergies Active Allergy Reactions Criticality Noted Date Comments Gramineae Pollens Runny nose Low 12/01/2022 Medications acetaminophen (Tylenol) 325 MG tablet 2 tab(s) orally every 4 hours, As Needed Active fluticasone (Flonase) 50 MCG/ACT nasal spray 1 spray(s) nasal once a day, As Needed Active lisinopril 10 MG tablet TAKE 1 TABLET BY MOUTH ONCE DAILY 0 Active HYDROcodone-abhijeet taminophen ([place]) 5-325 MG tablet TAKE 1 TABLET BY [...] week. 3 Active Vitamin D3 1.25 MG (28638 UT) capsule TAKE 1 CAPSULE BY MOUTH [...] [facility]-Abdominal Aortic Aneurys m (AAA) Screening 12/29/2019 [id number] Vaccine (2 - Moderna risk series) 06/02/2020 [...] to complete this topic Insurance [place] [id number] [employer] Care Teams Edging Machine Feeder Relationship Specialty Start Date End Date Herbie Meek DO [address] [place] [id number] PCP - General 03/27/23
--- NOTE | 2025-02-16 07:30 | US_ITS ---
FINAL REPORT CLINICAL HISTORY: Abd pain FINDINGS: ULTRASOUND ABDOMEN FINDINGS: The liver is unremarkable. Spleen has a normal sonographic appearance. No abnormality of the gallbladder is seen. No biliary ductal dilatation is identified. Kidneys show no evidence of obstruction. Simple cyst in the right kidney measures up to 3.5 cm. Pancreas is not well visualized. IVC and aorta are grossly unremarkable. There is no obvious fluid collection. IMPRESSION: Right renal simple cyst. Reviewed, Interpreted and Dictated by Ayana Campbell MD Transcribed by Skylar Faith Authenticated and [facility]
== END 2025-02-16 23:59 | disposition home or self-care (01) ==
PROVIDERS: PCP Internal Medicine; Visit Provider Internal Medicine
DX: N28.1 Cyst of kidney, acquired (principal); R10.9 Unspecified abdominal pain
CPT/HCPCS: 76700

== ENCOUNTER 2025-03-02 15:26 | Outpatient (CLI) | payer MEDICARE, SELFPAY ==
--- NOTE | 2025-03-02 15:29 | CT_ITS ---
FINAL REPORT TECHNIQUE: Thin section axial images were obtained through the lungs using a low-dose technique per lung cancer screening protocol. Reconstruction images were obtained using the axial data. Exam was performed using dose reduction technique. CLINICAL HISTORY: lung cancer screening former smoker quit 12 years ago, 1 ppd smoked 60 years copd COMPARISON: 02/27/2024 FINDINGS: Exam was performed on 03/02/2025 but images were not received for interpretation until 03/11/2025. CTDLvol: 2.90 DLP: 96.38 Performed smoker 60 pack year history Lungs: Reticulonodular opacities in the left lower lobe are subpleural in location and unchanged from the prior exam. There are similar findings in the right lower lobe, also subpleural in location. Cluster of nodules in the right upper lobe is unchanged. No new nodules or masses. No consolidations. Lymph nodes: Right axillary lymph node is increased in size now measuring 21 mm in axial dimension and was 13 mm on remeasurement. Other bilateral axillary lymph nodes are also larger. Mediastinal lymph nodes are unchanged. No hilar lymphadenopathy. Mediastinum: Heart size is normal. Prominent coronary artery calcifications. Pleura/pericardium: No pleural or pericardial effusion. Other: No acute abnormality in the upper abdomen. IMPRESSION: 1. Stable right upper lobe pulmonary nodules and stable subpleural predominant bilateral lower lobe reticulonodular opacities. 2. Modifier S: Worsening axillary lymphadenopathy could be reactive or neoplastic. Right axillary lymph node could be biopsied. Lung RADS: 2S Recommendation: 12-month follow-up low-dose chest CT Reviewed, Interpreted and Dictated by Obdulia Azul MD Transcribed by Skylar Faith Authenticated and [facility]
--- OUTSIDE RECORDS SUMMARY | 2025-03-02 15:29 | XMS_ITS | Clinical Summary ---
Author Organization [facility] Address [address] [place] [address] Care Team Providers Care Industrial Servicer Name Role Phone Herbie Meek DO Primary Care Provider [phone] Allergies Active Allergy Reactions Criticality Noted Date Comments Gramineae Pollens Runny nose Low 12/01/2022 Medications acetaminophen (Tylenol) 325 MG tablet 2 tab(s) orally every 4 hours, As Needed Active fluticasone (Flonase) 50 MCG/ACT nasal spray 1 spray(s) nasal once a day, As Needed Active lisinopril 10 MG tablet TAKE 1 TABLET BY MOUTH ONCE DAILY 0 Active HYDROcodone-abhijeet taminophen ([place]) 5-325 MG tablet TAKE 1 TABLET BY [...] week. 3 Active Vitamin D3 1.25 MG (22891 UT) capsule TAKE 1 CAPSULE BY MOUTH [...] [facility]-Abdominal Aortic Aneurys m (AAA) Screening 12/29/2019 [id number] Vaccine (2 - Moderna risk series) 06/02/2020 [...] to complete this topic Insurance [place] [id number] [employer] Care Teams Industrial Servicer Relationship Specialty Start Date End Date Herbie Meek DO [address] [place] [id number] PCP - General 03/27/23
--- OUTSIDE RECORDS SUMMARY | 2025-03-02 15:29 | XMS_ITS ---
Author Organization Healthcare Address [address] [place] [address] Care Team Providers Care Distributor Publications Name Role Phone Herbie Meek DO Primary Care Provider [phone] Active Problems Problem Noted Date Diagnosed Date [...]
== END 2025-03-02 23:59 | disposition home or self-care (01) ==
LOC: RAD 15:27
PROVIDERS: PCP Internal Medicine; Visit Provider Internal Medicine Pulmonary Disease
DX: Z12.2 Encounter for screening for malignant neoplasm of respiratory organs (principal); Z87.891 Personal history of nicotine dependence; J44.9 Chronic obstructive pulmonary disease, unspecified; R91.8 Other nonspecific abnormal finding of lung field; R59.0 Localized enlarged lymph nodes
CPT/HCPCS: 71271

== ENCOUNTER 2025-03-27 14:19 | Outpatient (CLI) | payer MEDICARE, SELFPAY ==
--- OUTSIDE RECORDS SUMMARY | 2025-03-27 14:21 | XMS_ITS | Clinical Summary ---
Author Organization [facility] Address [address] [place] [address] Care Team Providers Care Receiving Checker Name Role Phone Herbie Meek DO Primary Care Provider [phone] Allergies Active Allergy Reactions Criticality Noted Date Comments Gramineae Pollens Runny nose Low 12/01/2022 Medications acetaminophen (Tylenol) 325 MG tablet 2 tab(s) orally every 4 hours, As Needed Active fluticasone (Flonase) 50 MCG/ACT nasal spray 1 spray(s) nasal once a day, As Needed Active lisinopril 10 MG tablet TAKE 1 TABLET BY MOUTH ONCE DAILY 0 Active HYDROcodone-abhijeet taminophen ([place]) 5-325 MG tablet TAKE 1 TABLET BY [...] week. 3 Active Vitamin D3 1.25 MG (51824 UT) capsule TAKE 1 CAPSULE BY MOUTH [...] 60+ Years o r (1 - Risk 50-74 years 1-dose series) 2004 [facility]-Abdominal Aortic Aneurys m (AAA) Screening 12/29/2019 [id number] Vaccine (2 - Moderna risk series) 06/02/2020 05/05/2020 [facility]-Pneumococcal Vaccine: 50 + Years (2 of 2 - PCV) 12/03/2020 12/04/2019 [facility]-Influenza Vaccine (#1) 2024 12/04/2019 [facility]-Depression Screening 04/17/2025 025, 04/17/2024, 12/20/2022 HPV Vaccines (No Doses Required) Completed [facility]-HIB Vaccines Aged Out No longer e [...] this topic Insurance [employer] MEDICARE Care Teams Receiving Checker Relationship Specialty Start Date End Date Herbie Meek DO [address] [place] [id number] PCP - General 03/27/23
--- OUTSIDE RECORDS SUMMARY | 2025-03-27 14:21 | XMS_ITS ---
Author Organization [facility] Address [address] [place] [address] Care Team Providers Care Curriculum Coach Name Role Phone Herbie Meek DO Primary Care Provider [phone] Active Problems Problem Noted Date Diagnosed Date Prostate cancer 11/20/2019 Cancer Staging:Pathologic stage from 01/04/2023:Stage IIIB(ypT3a, ypN0, cM0, PSA: 12.6, Grade Group: 3) - Signed by Bert Adams MD on 01/04/2023 Current Treatment and Therapy Plans No current plan information found. Past Treatment and Therapy Plans No past plan information found. Past Radiation Episodes * SBRT: Right Pelvic lymph nodeOverview* First Treatment Date:05/09/2024 Last Treatment Date:05/19/2024 Intent:Curative Episode Provider: Intended Treatment Radiotherapy to Right Pelvic lymph node group * Linked Problems Prostate cancer Treatment Courses* Course C2 05/09/2024 - 05/19/2024 Treatment Period Fraction Dose Fractions Total Dose Plans Planned Rt Iliac LN 05/09/2024 - 05/19/2024 725 cGy 5 / 5 3,625 cGy Reference Points Delivered R Iliac LN 05/09/2024 - 05/19/2024 3,625 cGy * VMAT: Midline Prostate bedOverview* First Treatment Date:01/02/2023 Last Treatment Date:05/20/2024 Intent:Curative Episode Provider: Intended Treatment Radiotherapy to Midline Pros wilkes Bed * Linked Problems Prostate cancer Treatment Courses* [...]
--- NOTE | 2025-03-27 14:22 | XR_ITS ---
FINAL REPORT CLINICAL HISTORY: Hip pain COMPARISON: None FINDINGS: LEFT HIP: Two views of the left hip with an AP view of the pelvis demonstrate no acute fracture or dislocation. Mild degenerative changes are noted. The visualized bony structures are well aligned. No soft tissue abnormality is seen. IMPRESSION: Mild degenerative changes without acute bony abnormality. Reviewed, Interpreted and Dictated by Ayana Campbell MD Transcribed by Skylar Faith Authenticated and [facility]
--- NOTE | 2025-03-27 14:22 | XR_ITS ---
FINAL REPORT CLINICAL HISTORY: Pain/swelling COMPARISON: None FINDINGS: 3 views of the left hand were obtained. There is no acute fracture or dislocation. There are mild diffuse degenerative changes. Mild osteopenia is noted. There is no acute soft tissue abnormality. IMPRESSION: Degenerative changes without acute abnormality identified. Reviewed, Interpreted and Dictated by Ayana Campbell MD Transcribed by Skylar Faith Authenticated and [facility]
== END 2025-03-27 23:59 | disposition home or self-care (01) ==
LOC: RAD 14:19
PROVIDERS: PCP Internal Medicine; Visit Provider Internal Medicine
DX: M16.12 Unilateral primary osteoarthritis, left hip (principal); M19.042 Primary osteoarthritis, left hand; M85.842 Other specified disorders of bone density and structure, left hand
CPT/HCPCS: 73120; 73502